=== PATIENT | female | born 1950 | race Caucasian/White ===

== ENCOUNTER → 2016-10-28 | Outpatient (CLI) | payer MEDICARE ==
--- NOTE | 2016-10-28 14:07 | CT ---
EXAMINATION TYPE: CT sinus wo con DATE OF EXAM: 10/28/2016 12:10 PM COMPARISON: NONE HISTORY: Chronic sinusitis CT DLP: 628.70 mGycm CONTRAST: None The paranasal sinuses are examined in the axial plane at 2 mm thick sections. Reconstructed images i n the coronal plane were obtained. There is dental amalgam scatter artifact The maxillary sinuses are clear. The ethmoid air cells are clear. The sphenoid sinuses are clear. The frontal sinuses are aplastic. The septum is evaluated. There is septal deviation to the left. There is prior uncinectomies bilaterally. Ethmoidectomy is been performed. IMPRESSIONS: 1. Postsurgical changes. 2. No acute sinusitis. No significant mucosal thickening is present.
== END | disposition home or self-care (01) ==
LOC: RADCTMAIN 11:54
PROVIDERS: ATTEND Otolaryngology
DX: J32.9 Chronic sinusitis, unspecified (principal)
CPT/HCPCS: 70486

== ENCOUNTER → 2016-12-15 | Outpatient (CLI) | payer MEDICARE ==
--- NOTE | 2016-12-16 10:16 | MM ---
Reason for exam: screening (asymptomatic). Last mammogram was performed 1 year and 8 months ago. History: Patient is postmenopausal. Family history of breast cancer in mother at age 69. Took estrogen for 6 months. Physical Findings: A clinical breast exam by your physician is recommended on an annual basis and results should be correlated with mammographic findings. MG Screening Mammo w CAD Bilateral CC and MLO view(s) were taken. Prior study comparison: April 27, 2015, bilateral MG screening mammo w CAD. April 24, 2014, bilateral MG screening mammo w CAD. April 21, 2013, bilateral digital screening mammo w/CAD. Finding: There are few typically benign calcifications in both breasts. There is no discrete abnormality. ASSESSMENT: Benign, BI-RAD 2 RECOMMENDATION: Routine screening mammogram of both breasts in 1 year.
== END | disposition home or self-care (01) ==
LOC: RADMAMWWP 13:35
PROVIDERS: ATTEND Family Medicine
DX: Z12.31 Encounter for screening mammogram for malignant neoplasm of breast (principal)

== ENCOUNTER → 2017-10-28 | Outpatient (CLI) | payer MEDICARE ==
[2017-10-28 12:44] LABS: Basophils % (A) 1 %; Eosinophils # (A) 0.1 k/uL (0-0.7); Eosinophils % (A) 1 %; HCT 37.6 % (34.0-46.0); HGB 13.1 gm/dL (11.4-16.0); Lymphocytes # (A) 1.8 k/uL (1.0-4.8); Lymphocytes % (A) 46 %; MCH 34.5 pg (25.0-35.0); MCHC 34.9 g/dL (31.0-37.0); Mean Platelet Volume 7.3; Monocytes # (A) 0.2 k/uL (0-1.0); Monocytes % (A) 6 %; Neutrophils # (A) 1.6 k/uL (1.3-7.7); Neutrophils % (A) 43 %; Platelet Count 192 k/uL (150-450); RBC 3.79 m/uL (3.80-5.40); WBC 3.8 k/uL (3.8-10.6)
== END | disposition home or self-care (01) ==
LOC: LABWHC1 11:57
PROVIDERS: ATTEND Internal Medicine
DX: E78.2 Mixed hyperlipidemia (principal)
CPT/HCPCS: 36415; 82607; 85025

== ENCOUNTER → 2018-03-08 | Outpatient (CLI) | payer MEDICARE ==
--- NOTE | 2018-03-08 15:57 | US ---
EXAMINATION TYPE: US transvaginal DATE OF EXAM: 03/08/2018 COMPARISON: NONE CLINICAL HISTORY: 67-year-old female R10.2 Pelvic pain. TECHNIQUE: Transvaginal (TV). Transvaginal sonographic images per order Findings: EXAM MEASUREMENTS: Uterus: 5.6 x 2.3 x 4.0 cm Endometrial Stripe: 3.2 mm Right Ovary: obscured by bowel gas/atrophy Left Ovary: obscured by bowel gas/atrophy 1. Uterus: Anteverted wnl. Some calcifications in the region of the cervix suggests prior instrume ntation or infection. 2. Endometrium: wnl 3. Right Ovary: obscured by bowel gas/atrophy 4. Left Ovary: Obscured by overlying bowel gas 5. Bilateral Adnexa: wnl 6. Posterior cul-de-sac: wnl IMPRESSION: Thin endometrial stripe, appropriate for a postmenopausal patient. Neither ovary could be visualized.
== END | disposition home or self-care (01) ==
LOC: RADUSWWP 13:04
PROVIDERS: ATTEND Family Medicine
DX: R10.2 Pelvic and perineal pain (principal); Z78.0 Asymptomatic menopausal state
CPT/HCPCS: 76830

== ENCOUNTER → 2018-04-06 | Outpatient (CLI) | payer MEDICARE ==
--- NOTE | 2018-04-06 15:19 | MM ---
Reason for exam: clinical finding. Last mammogram was performed 1 year and 4 months ago. History: Patient is postmenopausal. Family history of breast cancer in mother at age 69. Took estrogen for 6 months. Physical Findings: Nurse did not find any significant physical abnormalities on exam. MG 3D Diag Mammo W/Cad [place] Bilateral CC and MLO view(s) were taken. Prior study comparison: December 15, 2016, bilateral MG screening mammo w CAD. April 27, 2015, bilateral MG screening mammo w CAD. There are scattered fibroglandular densities. No significant new findings when compared with previous films. These results were verbally communicated with the patient and result sheet given to the patient on 04/06/18. ASSESSMENT: Benign, BI-RAD 2 RECOMMENDATION: Routine screening mammogram of both breasts in 1 year.
== END | disposition home or self-care (01) ==
LOC: RADMAMWWP 14:25
PROVIDERS: ATTEND Family Medicine
DX: N63.21 Unspecified lump in the left breast, upper outer quadrant (principal)
CPT/HCPCS: 77066; G0279; 77062

== ENCOUNTER → 2019-05-16 | Outpatient (CLI) | payer MEDICARE ==
--- NOTE | 2019-05-17 09:22 | MM ---
Reason for exam: screening (asymptomatic). Last mammogram was performed 1 year and 1 month ago. History: Patient is postmenopausal. Family history of breast cancer in mother at age 69. Took estrogen for 6 months. Physical Findings: A clinical breast exam by your physician is recommended on an annual basis and results should be correlated with mammographic findings. MG Screening Mammo w CAD Bilateral CC and MLO view(s) were taken. Prior study comparison: April 06, 2018, bilateral MG 3d diag mammo w/cad [place]. December 15, 2016, bilateral MG screening mammo w CAD. There are scattered fibroglandular densities. There is no discrete abnormality. No significant changes when compared with prior studies. ASSESSMENT: Benign, BI-RAD 2 RECOMMENDATION: Routine screening mammogram of both breasts in 1 year.
== END | disposition home or self-care (01) ==
LOC: RADMAMWWP 11:10
PROVIDERS: ATTEND Family Medicine
DX: Z12.31 Encounter for screening mammogram for malignant neoplasm of breast (principal)
CPT/HCPCS: 77067

== ENCOUNTER → 2020-01-26 | Outpatient (CLI) | payer MEDICARE ==
--- NOTE | 2020-01-26 11:04 | US ---
EXAMINATION TYPE: US venous doppler duplex LE RT DATE OF EXAM: 01/26/2020 10:55 AM COMPARISON: NONE CLINICAL HISTORY: 69-year-old female M79.661 pain in RT lower leg. Pt states right leg pain and swell ing SIDE PERFORMED: Right TECHNIQUE: The lower extremity deep venous system is examined utilizing real time linear array sonog wesly with graded compression, doppler sonography and color-flow sonography. FINDINGS: VESSELS IMAGED: External Iliac Vein (EIV) Common Femoral Vein Deep Femoral Vein Greater Saphenous Vein * Femoral Vein Popliteal Vein Small Saphenous Vein * Proximal Calf Veins (* superficial vessels) Right Leg: Negative for DVT. Suspect a small elongated Beard's Cyst right pop fossa= 4.1 x 0.9 x 2.2 cm Autoclave Operator notes: Attempted to call Dr's office at time of exam, no answer IMPRESSION: 1. No evidence for DVT within the right lower extremity imaged from the groin to the upper calf. 2. Suspect a small and elongated 4.1 x 2.2 cm Beard's cyst.
== END | disposition home or self-care (01) ==
LOC: RADUSWWP 10:32
PROVIDERS: ATTEND Family Medicine
DX: M79.661 Pain in right lower leg (principal)

== ENCOUNTER → 2020-05-09 | Outpatient (CLI) | payer MEDICARE ==
--- NOTE | 2020-05-10 00:02 | MR ---
EXAMINATION TYPE: MR knee RT wo con DATE OF EXAM: 05/09/2020 COMPARISON: None HISTORY: Right knee pain S/P fall Multiplanar multiecho imaging of the right knee was performed without contrast. FINDINGS: There is a mild to moderate knee joint effusion. There is popliteal cyst that measures 6 x 1 cm. The anterior and posterior cruciate ligaments are intact. There is vertical tear through the posterior ho rn of the lateral meniscus. There is minimal increased signal within the posterior horn of the medial meniscus without extension to the articular surface. There is narrowing of the medial joint space. T here is some spurring of the femoral and tibial condyles. I see no bony destructive process. The liseth ateral ligaments are intact. There is no evidence of a fracture. There is no soft tissue mass. IMPRESSION: Vertical tear through the posterior horn of the lateral meniscus. A stricture arthritic changes in th e medial joint space with spurring and joint space narrowing. Joint effusion with popliteal cyst. No evidence of ligamentous tear.
== END | disposition home or self-care (01) ==
LOC: RADMRIMAIN 19:53
PROVIDERS: ATTEND Orthopaedic Surgery
DX: S83.281A Other tear of lateral meniscus, current injury, right knee, initial encounter (principal); M17.11 Unilateral primary osteoarthritis, right knee; M25.461 Effusion, right knee; M71.21 Synovial cyst of popliteal space [Baker], right knee

== ENCOUNTER → 2020-05-18 | Outpatient (CLI) | payer MEDICARE ==
[2020-05-18 12:43] LABS: Basophils % (A) 1 %; Eosinophils % (A) 1 %; HCT 35.9 % (34.0-46.0); Lymphocytes # (A) 1.6 k/uL (1.0-4.8); Lymphocytes % (A) 47 %; MCH 34.1 pg (25.0-35.0); MCHC 33.5 g/dL (31.0-37.0); MCV 101.8 fL (80.0-100.0); Mean Platelet Volume 7.2; Monocytes # (A) 0.2 k/uL (0-1.0); Monocytes % (A) 6 %; Neutrophils # (A) 1.4 k/uL (1.3-7.7); Neutrophils % (A) 43 %; Platelet Count 142 k/uL (150-450); RBC 3.52 m/uL (3.80-5.40); RDW 12.6 % (11.5-15.5); WBC 3.3 k/uL (3.8-10.6)
[2020-05-18 12:51] LABS: Potassium 4.5 mmol/L (3.5-5.1)
== END | disposition home or self-care (01) ==
LOC: LABPAT 11:26
PROVIDERS: ATTEND Orthopaedic Surgery
DX: M23.91 Unspecified internal derangement of right knee (principal)
CPT/HCPCS: 36415; 80051; 85025; 93005

== ENCOUNTER → 2020-06-07 | Day surgery (SDC) | payer MEDICARE ==
[2020-06-05 14:34] VITALS: BMI 29.8
--- NOTE | 2020-06-06 17:15 | HP ---
HISTORY AND PHYSICAL DATE OF SURGERY: 06/07/2020 Jocy Sapp is a 70-year-old patient seen with progressive right knee pain. We discussed options for treatment. She elected to proceed with right knee arthroscopy. Consent was obtained. PAST MEDICAL HISTORY: Asthma. PAST SURGICAL HISTORY: Knee arthroscopy. MEDICATIONS: Albuterol, Spiriva. ALLERGIES: None. SOCIAL HISTORY: She denies tobacco use. PHYSICAL EVALUATION RIGHT KNEE: Range of motion 0-120. Mild effusion. Tenderness along the medial joint line, tenderness along the lateral joint line. Positive medial Ok's. Positive lateral Ok's. Ligaments stable. Hip rotation without pain. There is patellar crepitus. Range of motion. Distal neurovascular exam intact. RIGHT KNEE RADIOGRAPHS: Revealed moderate medial, moderate to severe patellofemoral compartment osteoarthritis. A right knee MRI revealed lateral meniscal tear, joint effusion, and osteoarthritic changes. IMPRESSION: 1. Internal derangement, right knee with lateral meniscal tear. 2. Right knee osteoarthritis. 3. Asthma. PLAN: Right knee arthroscopy with partial meniscectomy, partial synovectomy and debridement. MMODL / IJN: [id number] /
[~2020-06-07] MED LIST: BUPIVACAINE (PF) 0.5% 30 ML VIAL MISCELLANE ONE; DEXAMETHASONE SOD PHOSPHATE 10 MG/ML 1 ML VIAL IV ONE; HYDROmorphone 0.5 MG/0.5 ML SYRINGE IVP PRN; KETOROLAC 15 MG/ML 1 ML VIAL IVP ONE; LACTATED RINGERS 1,000 ML IV SCH; LIDOCAINE 1% INJ 10MG/ML (20 ML MDV) ONE; MIDAZOLAM 2 MG/2 ML VIAL ONE; ONDANSETRON 4 MG/2 ML VIAL IVP ONE; PROPOFOL 10 MG/ML 20 ML VIAL IV ONE; fentaNYL (PF) 50 MCG/ML 2 ML AMP ONE; traMADol 50 MG TAB ONE; traMADol 50 MG TAB PO ONE
[2020-06-07 12:27] VITALS: RESP 16
[2020-06-07 15:03] VITALS: TEMP 98.6
--- NOTE | 2020-06-07 15:05 | P.OP ---
Date of Procedure: 06/07/20 Preoperative Diagnosis: Internal derangement right knee Postoperative Diagnosis: 1. Tear lateral meniscus right knee 2. Grade 2/3 chondromalacia lateral femoral condyle right knee 3. 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 Reactive synovitis medial, lateral and suprapatellar compartments right knee Procedure(s) Performed: 1. Arthroscopic partial lateral meniscectomy right knee 2. Arthroscopic chondroplasty lateral femoral condyle right knee 3. Arthroscopic chondroplasty patella right knee 4. Arthroscopic partial synovectomy medial, lateral and suprapatellar compartments right knee Anesthesia: PIPEA, local Surgeon: Tereso Pino Estimated Blood Loss (ml): 7 Pathology: none sent Condition: stable Disposition: PACU Indications for Procedure: 70-year-old patient seen with progressive right knee pain. After treatment options were discussed, she elected to proceed with arthroscopy. Operative Findings: See description of procedure Description of Procedure: Patient was taken to the operative suite. Patient underwent a general anesthetic by the department of anesthesia. Patient was given preoperative antibiotics. The right lower extremity was placed in a well-padded arthroscopic leg arnett. The right leg was prepped and draped in the normal sterile orthopedic fashion. A lateral parapatellar and suprapatellar incision was made. Trochars were inserted. Arthroscopy was initiated. Suprapatellar pouch revealed diffuse thick reactive synovitis. The patellofemoral joint appeared to articulate congruently. There was grade 3 chondromalacia of both the patella and femoral sulcus. The scope was guided into the medial gutter. Loose bodies or plica were identified. The scope was then guided into the medial compartment. A medial parapatellar incision was made. Trocar inserted followed by probe. There was some superficial fraying along the posterior horn medial meniscus. There was thick reactive synovitis anteriorly. There were grade 1/2 chondromalacia changes of the femoral condyle with no tears. I debrided that mild superficial fraying with a motorized shaver. I performed a partial synovectomy decompressing the reactive synovitis. The shaver was removed. There was good decompression of the synovitis. Scope and probe were then guided into the intercondylar notch. Cruciates were identified, probed and found to be able. The scope and probe were then guided into lateral compartment. There were grade 2/3 chondromalacia changes of the lateral femoral condyle with some small osteochondral tears. There was a complex tear posterior horn lateral meniscus. There was thick reactive synovitis anteriorly. I performed a partial lateral meniscectomy. I performed a chondroplasty of the lateral femoral condyle. I performed a partial synovectomy. The residual meniscus was stable. The residual osteochondral surface was stable. There was good decompression of the synovitis. The scope was in guided back into the suprapatellar compartment. I introduced a motorized shaver into the super compartment. I debrided some piecemeal fragments of meniscus. I performed a chondroplasty of the patella and femoral sulcus. I performed a partial synovectomy decompressing reactive synovitis. The shaver was removed. There was good decompression of synovitis. The residual osteochondral surface of the patellofemoral joint appeared stable. There were now noticeable some areas of grade 4 chondromalacia. I took one more look on the entire knee, no residual debris. Instruments were now removed from the joint. The joint was infiltrated with .25% Marcaine. Steri-Strips were applied to the portal sites. Sterile dressings were applied. The patient was placed into a SHARON hose. No tourniquet was utilized. The patient was awakened, transferred to a bed and taken to recovery stable satisfactory condition.
[2020-06-07 16:17] VITALS: BP 123/81; PULSE 60
== END | disposition home or self-care (01) ==
LOC: OR 11:22
PROVIDERS: ATTEND Orthopaedic Surgery
DX: M23.200 Derangement of unspecified lateral meniscus due to old tear or injury, right knee (principal); M22.41 Chondromalacia patellae, right knee; M65.861 Other synovitis and tenosynovitis, right lower leg; J45.909 Unspecified asthma, uncomplicated; I34.1 Nonrheumatic mitral (valve) prolapse; E07.9 Disorder of thyroid, unspecified; K21.9 Gastro-esophageal reflux disease without esophagitis; Z98.890 Other specified postprocedural states; Z90.710 Acquired absence of both cervix and uterus; Z79.899 Other long term (current) drug therapy
CPT/HCPCS: 29881; J2250; J1100; J0690; J2405; J2001; J3010; J1885; J2704

== ENCOUNTER → 2020-06-25 | Outpatient (CLI) | payer MEDICARE ==
--- NOTE | 2020-06-26 09:39 | MM ---
Reason for exam: screening (asymptomatic). Last mammogram was performed 1 year and 1 month ago. History: Patient is postmenopausal. Family history of breast cancer in mother at age 69. Took estrogen for 6 months. Physical Findings: A clinical breast exam by your physician is recommended on an annual basis and results should be correlated with mammographic findings. MG 3D Screening Mammo W/Cad Bilateral CC and MLO view(s) were taken. Prior study comparison: May 16, 2019, bilateral MG screening mammo w CAD. April 06, 2018, bilateral MG 3d diag mammo w/cad [facility]. There are scattered fibroglandular densities. There is no discrete abnormality. No significant changes when compared with prior studies. ASSESSMENT: Negative, BI-RAD 1 RECOMMENDATION: Routine screening mammogram of both breasts in 1 year.
== END | disposition home or self-care (01) ==
LOC: RADMAMWWP 10:53
PROVIDERS: ATTEND Internal Medicine
DX: Z12.31 Encounter for screening mammogram for malignant neoplasm of breast (principal)
CPT/HCPCS: 77063; 77067

== ENCOUNTER → 2020-10-01 | Outpatient (CLI) | payer MEDICARE ==
[2020-10-01 09:21] LABS: African American GFR (CKD) >90 (>60 ml/min/1.73 sqM); Blood Urea Nitrogen 10 mg/dL (7-17); Non-African American GFR(CKD) 87 (>60 ml/min/1.73 sqM)
--- NOTE | 2020-10-01 11:52 | CT ---
EXAMINATION TYPE: CT soft tissue neck w con DATE OF EXAM: 10/01/2020 COMPARISON: None HISTORY: Swelling, mass and lumb left neck CT DLP: 455.2 mGycm CONTRAST: Patient injected with 100 mL of Isovue 300. TECHNIQUE: Axial images at 3 mm thick sections. Reconstructed images in the coronal plane and sagitt al plane are reviewed. FINDINGS: Limited CT sections are obtained the lung apices. The lung apices appear clear. CT neck: The torus tubarius and fossa of Rosenmuller are normal. Physical Therapy Resident spaces are normal. Para nasal sinuses and mastoid air cells are clear. Parotid glands appear normal and symmetrical. Submandibular glands, are normal. Parapharyngeal spac es are normal. No suspicious adenopathy is evident. BB ludwig the palpable region at the base of the neck extending towards the temporal region. This is a t the lower extent of the parotid gland. The underlying parotid gland however appears unremarkable an d symmetrical with the contralateral side. The hypopharynx appears within normal limits. There is a tiny ring within the submental space just ri ght of midline. This appears peripheral enhancement is nonspecific. Small lymph node may be present. Consider follow-up. Vocal cord level appear symmetrical. Thyroid as visualized is normal. Some mild degenerative disc changes within the mid to lower cervical spine. Subtle kyphosis in the lo wer cervical spine. There may be a small central disc bulge C4-5. IMPRESSIONS: 1. BB ludwig the lower extent of the left parotid gland. Parotid gland appears unremarkable. Abnormali ty to correspond to the reported palpable abnormality is not identified. 2. Tiny ring-enhancing lesion measuring 0.6 cm within submental space may be present.
== END | disposition home or self-care (01) ==
LOC: RADCTMAIN 08:28
PROVIDERS: ATTEND Otolaryngology
DX: R22.1 Localized swelling, mass and lump, neck (principal)
CPT/HCPCS: 70491; 82565; 84520

== ENCOUNTER → 2021-01-21 | Outpatient (CLI) | payer MEDICARE ==
[2021-01-21 23:52] LABS: HGB 11.7 g/dL (12.0-15.0); MCH 34.3 pg (27.0-32.0); MCHC 33.4 g/dL (32.0-37.0); MCV 102.6 fL (80.0-97.0); Mean Platelet Volume 10.3 fL (9.5-12.2); Platelet Count 154 X 10*3/uL (140-440); RBC 3.41 X 10*6/uL (4.10-5.20); RDW 12.3 % (11.5-14.5); WBC 4.98 X 10*3/uL (4.50-10.00)
[2021-01-22 00:43] LABS: Basophils # (A) 0.02 X 10*3/uL (0.00-0.10); Basophils % (A) 0.4 %; Eosinophils # (A) 0.04 X 10*3/uL (0.04-0.35); Eosinophils % (A) 0.8 %; Lymphocytes # (A) 2.33 X 10*3/uL (0.90-5.00); Lymphocytes % (A) 46.8 %; Macrocytosis (M) 2+; Monocytes # (A) 0.35 X 10*3/uL (0.20-1.00); Neutrophils # (A) 2.22 X 10*3/uL (1.80-7.70); Neutrophils % (A) 44.6 %
[2021-01-22 01:44] LABS: % Iron Saturation 23.06 (12.00-45.00); African American GFR (CKD) 87.2 (60.0-200.0); Albumin 4.4 g/dL (3.80-4.90); Albumin/Globulin Ratio 1.63 (1.60-3.17); Anion Gap 7.6 mmol/L (4.00-12.00); BUN/Creat Ratio 16.25 Ratio (12.00-20.00); Calcium 10.2 mg/dL (8.7-10.3); Carbon Dioxide 25.4 mmol/L (21.6-31.8); Globulin 2.7 g/dL (1.6-3.3); Non-African American GFR(CKD) 75.2 (60.0-200.0); Potassium 4.2 mmol/L (3.5-5.5); Total Bilirubin 0.4 mg/dL (0.2-1.2); Total Protein 7.1 g/dL (6.2-8.2)
[2021-01-22 01:52] LABS: Ferritin 30.2 ng/mL (10.0-291.0)
[2021-01-22 13:25] LABS: Ceruloplasmin 29.6 mg/dL (20.0-60.0)
== END | disposition home or self-care (01) ==
LOC: LABWHC1 15:54
PROVIDERS: ATTEND Internal Medicine Gastroenterology
DX: K76.0 Fatty (change of) liver, not elsewhere classified (principal); D69.6 Thrombocytopenia, unspecified; R74.8 Abnormal levels of other serum enzymes
CPT/HCPCS: 36415; 80053; 81596; 82103; 82390; 82728; 83516; 83540; 83550; 85025; 86038

== ENCOUNTER 2021-02-26 09:53 | Day surgery (SDC) | payer MEDICARE ==
[~2021-02-26 09:53] MED LIST changes: -BUPIVACAINE (PF) 0.5% 30 ML VIAL MISCELLANE ONE; -DEXAMETHASONE SOD PHOSPHATE 10 MG/ML 1 ML VIAL IV ONE; -HYDROmorphone 0.5 MG/0.5 ML SYRINGE IVP PRN; -KETOROLAC 15 MG/ML 1 ML VIAL IVP ONE; +LIDOCAINE 1% (10MG/ML) FOR IV START INTRADERMA PRN; -LIDOCAINE 1% INJ 10MG/ML (20 ML MDV) ONE; -MIDAZOLAM 2 MG/2 ML VIAL ONE; -ONDANSETRON 4 MG/2 ML VIAL IVP ONE; -PROPOFOL 10 MG/ML 20 ML VIAL IV ONE; -fentaNYL (PF) 50 MCG/ML 2 ML AMP ONE; -traMADol 50 MG TAB ONE; -traMADol 50 MG TAB PO ONE
[2021-02-26] MEDS ORDERED: ONDANSETRON 4 MG/2 ML VIAL ONE (10:34)
[2021-02-26] MEDS ORDERED: ONDANSETRON 4 MG/2 ML VIAL IVP ONE (10:36)
[2021-02-26] MEDS ORDERED: PROPOFOL 10 MG/ML 20 ML VIAL IV ONE (11:08)
[2021-02-26] MEDS ORDERED: LIDOCAINE 1% INJ 10MG/ML (20 ML MDV) ONE (11:08)
--- NOTE | 2021-02-26 11:13 | P.GSHP ---
History of Present Illness H&P Date: 02/26/21 Chief Complaint: Colon cancer screening Patient here today for colonoscopy. Last colonoscopy 5 years ago. Patient is personal history of colon polyps. Patient also has history of H. pylori in the past. No abdominal complaints have improved. No rectal bleeding or melena. No family history of colon cancer. Past Medical History Past Medical History: Asthma, Coronary Artery Disease (CAD), COPD, Eye Disorder, GERD/Reflux, Hearing Disorder / Deafness, Hyperlipidemia, Mitral Valve Prolapse (MVP), Osteoarthritis (OA), Thyroid Disorder Additional Past Medical History / Comment(s): current fx Left wrist in cast, mitral valve prolapse, questionable history of pulmonary hypertension and enlarged cardiac structures on the right,colon polyps, HX VERTIGO, History of Any Multi-Drug Resistant Organisms: None Reported Past Surgical History: Adenoidectomy, Cholecystectomy, Heart Catheterization, Tonsillectomy, Tubal Ligation Additional Past Surgical History / Comment(s): colonoscopy, 1 implanted teeth LOWER RT SIDE, LIPO SUCTION BALBINA. THIGHS (1994), NASAL SX (FIXED BROKEN NOSE), YOU 05/04/15-previous YOU and cardiac catheterization in 2010 Past Anesthesia/Blood Transfusion Reactions: Postoperative Nausea & Vomiting (PONV) Additional Past Anesthesia/Blood Transfusion Reaction / Comment(s): hx vertigo Smoking Status: Former smoker - Past Family History Father Family Medical History: Cancer Additional Family Medical History / Comment(s): ESOPHAGEAL CANCER, HX ETOH AND SMOKING Mother Family Medical History: Cancer, Diabetes Mellitus Additional Family Medical History / Comment(s): BREAST CANCER, SKIN CANCER AND EYE ANEURYSMS Sister(s) Additional Family Medical History / Comment(s): BRAIN AND EYE ANEURYSMS. Medications and Allergies Home Medications Medication Instructions Recorded Confirmed Type ALPRAZolam [Xanax] 0.25 mg PO BID PRN 08/09/14 02/26/21 History Albuterol Inhaler (Mhu) [Ventolin 1 - 2 puff INHALATION RT-Q6H PRN 08/09/14 02/26/21 History Hfa Inhaler (Mhu)] Cholecalciferol [Vitamin D3 (25 2,000 unit PO DAILY@1200 05/02/15 02/26/21 History Mcg = 1000 Iu)] Fluticasone Nasal Leary [Flonase 1 spray EA NOSTRIL DAILY PRN 05/02/15 02/26/21 History Nasal Leary] Meclizine [Antivert] 25 mg PO TID PRN 05/02/15 02/26/21 History Tiotropium 18 Mcg/Puff [Spiriva] 1 cap INHALATION RT-DAILY 05/02/15 02/26/21 History Fexofenadine/Pseudoephedrine 1 each PO DAILY PRN 06/25/15 02/26/21 History [Lila-D 24 Hour Tablet] Elmira-3(600mg) 600 mg PO DAILY 06/25/15 02/26/21 History Dulera 1 puff INHALATION DAILY 06/05/20 02/26/21 History Levothyroxine Sodium [Synthroid] 25 mcg PO DAILY 06/05/20 02/26/21 History Montelukast [Singulair] 10 mg PO DAILY 06/05/20 02/26/21 History diphenhydrAMINE [Benadryl] 25 mg PO TID PRN 06/05/20 02/26/21 History Allergies Allergy/AdvReac Type Severity Reaction Status Date / Time peanut Allergy SHORTNESS Verified 02/26/21 10:11 OF BREATH-THROAT CLOSES ENVIRONMENTAL ALLERGIES Allergy SINUS Uncoded 02/26/21 10:11 SYMPTOMS-MOLD,POLLEN,DUST,TREES,GRASS,ETC. Surgical - Exam Vital Signs Pulse Resp BP Pulse Ox 65 16 131/64 96 02/26/21 10:15 02/26/21 10:15 02/26/21 10:15 02/26/21 10:15 Physical exam: General: Well-developed, well-nourished HEENT: Normocephalic, sclerae nonicteric Abdomen: Nontender, nondistended Extremities: No edema Neuro: Alert and oriented Assessment and Plan (1) Colon cancer screening Narrative/Plan: Will proceed with colonoscopy at this time Current Visit: Yes Status: Acute Code(s): Z12.11 - ENCOUNTER FOR SCREENING FOR MALIGNANT NEOPLASM OF COLON SNOMED Code(s): 632259186
--- NOTE | 2021-02-26 11:31 | P.PCN ---
Date of Procedure: 02/26/21 Procedure(s) Performed: PREOPERATIVE DIAGNOSIS: Colon cancer screening, history of polyps POSTOPERATIVE DIAGNOSIS: Sigmoid polyp, diverticulosis PROCEDURE: Colonoscopy with snare cautery ANESTHESIA: MAC SURGEON: Attila Flores M.D. SPECIMENS: Sigmoid colon polyp ENDOSCOPIC PROCEDURE: The patient was placed on the endoscopy table in the left decubitus position. The Olympus colonoscope was inserted into the anus and passed under direct visualization to the base of the cecum. The appendiceal orifice was visualized. From that point the scope was slowly withdrawn inspecting all surfaces carefully. There were no neoplastic inflammatory or polypoid lesions throughout the cecum, ascending, transverse, and descending colon. In the sigmoid colon a small polyp was seen and removed using the snare with cautery technique. The remainder of the sigmoid and rectum appeared normal. There was mild scattered diverticulosis throughout the colon. Digital rectal examination was normal. The patient was taken to the recovery room in stable condition per anesthesia guidelines. RECOMMENDATIONS: Await biopsy results. Follow loss to 5 years.
[2021-02-26 12:02] VITALS: BP 147/75; PULSE 53; RESP 20
== END 2021-02-26 12:13 | disposition home or self-care (01) ==
LOC: ORWHC2ENDO 09:53
PROVIDERS: ATTEND Surgery
DX: Z12.11 Encounter for screening for malignant neoplasm of colon (principal); D12.5 Benign neoplasm of sigmoid colon; K57.30 Diverticulosis of large intestine without perforation or abscess without bleeding; Z86.010 Personal history of colon polyps; I25.10 Atherosclerotic heart disease of native coronary artery without angina pectoris; J44.9 Chronic obstructive pulmonary disease, unspecified; K21.9 Gastro-esophageal reflux disease without esophagitis; H91.90 Unspecified hearing loss, unspecified ear; E78.5 Hyperlipidemia, unspecified; I34.1 Nonrheumatic mitral (valve) prolapse; M19.90 Unspecified osteoarthritis, unspecified site; R42 Dizziness and giddiness; K76.0 Fatty (change of) liver, not elsewhere classified; E07.9 Disorder of thyroid, unspecified; Z90.89 Acquired absence of other organs; Z90.49 Acquired absence of other specified parts of digestive tract; Z98.51 Tubal ligation status; Z98.890 Other specified postprocedural states; Z87.891 Personal history of nicotine dependence; Z80.0 Family history of malignant neoplasm of digestive organs; Z83.3 Family history of diabetes mellitus; Z80.3 Family history of malignant neoplasm of breast; Z80.8 Family history of malignant neoplasm of other organs or systems; H57.89 Other specified disorders of eye and adnexa; Z79.51 Long term (current) use of inhaled steroids; Z79.890 Hormone replacement therapy; Z79.899 Other long term (current) drug therapy; Z91.010 Allergy to peanuts; Z91.048 Other nonmedicinal substance allergy status
CPT/HCPCS: 88305; 45385; J2405; J2001; J2704

== ENCOUNTER → 2021-03-18 | Outpatient (CLI) | payer MEDICARE ==
[2021-03-18 20:16] LABS: African American GFR (CKD) 107.8 (60.0-200.0); Albumin 4.4 g/dL (3.80-4.90); Albumin/Globulin Ratio 1.69 (1.60-3.17); Anion Gap 9.4 mmol/L (4.00-12.00); BUN/Creat Ratio 21.67 Ratio (12.00-20.00); Calcium 9.3 mg/dL (8.7-10.3); Carbon Dioxide 25.6 mmol/L (21.6-31.8); Chol/HDL Ratio 3.4; Globulin 2.6 g/dL (1.6-3.3); Potassium 4.4 mmol/L (3.5-5.5); Total Bilirubin 0.5 mg/dL (0.2-1.2)
== END | disposition home or self-care (01) ==
LOC: LABWHC1 11:17
PROVIDERS: ATTEND Internal Medicine Interventional Cardiology
DX: E78.2 Mixed hyperlipidemia (principal)
CPT/HCPCS: 36415; 80053; 80061

== ENCOUNTER → 2021-07-03 | Outpatient (CLI) | payer MEDICARE | END | disposition home or self-care (01) | LOC: LABWHC1 15:21 | PROVIDERS: ATTEND Internal Medicine Critical Care Medicine | DX: G72.49 Other inflammatory and immune myopathies, not elsewhere classified (principal) | CPT/HCPCS: 36415; 82550 ==

== ENCOUNTER → 2021-07-23 | Outpatient (CLI) | payer MEDICARE ==
--- NOTE | 2021-07-24 14:46 | MM ---
Reason for exam: screening (asymptomatic). Last mammogram was performed 1 year and 1 month ago. History: Patient is postmenopausal. Family history of breast cancer in mother at age 69. Took estrogen for 6 months. Physical Findings: A clinical breast exam by your physician is recommended on an annual basis and results should be correlated with mammographic findings. MG 3D Screening Mammo W/Cad Bilateral CC and MLO view(s) were taken. Prior study comparison: June 25, 2020, bilateral MG 3d screening mammo w/cad. May 16, 2019, bilateral MG screening mammo w CAD. There are scattered fibroglandular densities. No significant changes when compared with prior studies. ASSESSMENT: Benign, BI-RAD 2 RECOMMENDATION: Routine screening mammogram of both breasts in 1 year.
== END | disposition home or self-care (01) ==
LOC: RADMAMWWP 08:08
PROVIDERS: ATTEND Internal Medicine
DX: Z12.31 Encounter for screening mammogram for malignant neoplasm of breast (principal); Z80.3 Family history of malignant neoplasm of breast; Z78.0 Asymptomatic menopausal state
CPT/HCPCS: 77063; 77067

== ENCOUNTER → 2021-07-31 | Outpatient (CLI) | payer MEDICARE ==
[2021-07-31 19:11] LABS: HCT 36.9 % (37.2-46.3); HGB 12.4 g/dL (12.0-15.0); MCH 35.5 pg (27.0-32.0); MCHC 33.6 g/dL (32.0-37.0); MCV 105.7 fL (80.0-97.0); Mean Platelet Volume 9.8 fL (9.5-12.2); Platelet Count 150 X 10*3/uL (140-440); RBC 3.49 X 10*6/uL (4.10-5.20); RDW 13.2 % (11.5-14.5); WBC 4.92 X 10*3/uL (4.50-10.00)
[2021-07-31 20:28] LABS: Basophils # (A) 0.02 X 10*3/uL (0.00-0.10); Basophils % (A) 0.4 %; Eosinophils # (A) 0.01 X 10*3/uL (0.04-0.35); Eosinophils % (A) 0.2 %; Lymphocytes # (A) 1.69 X 10*3/uL (0.90-5.00); Lymphocytes % (A) 34.3 %; Monocytes # (A) 0.37 X 10*3/uL (0.20-1.00); Monocytes % (A) 7.5 %
[2021-07-31 21:08] LABS: Albumin 4.4 g/dL (3.8-4.9); Albumin/Globulin Ratio 1.76 (1.60-3.17); Anion Gap 11.7 mmol/L (10.00-18.00); BUN/Creat Ratio 11.83 Ratio (12.00-20.00); Blood Urea Nitrogen 7.1 mg/dL (9.0-27.0); Calcium 9.4 mg/dL (8.7-10.3); Carbon Dioxide 24.3 mmol/L (20.0-27.5); Globulin 2.5 g/dL (1.6-3.3); Non-African American GFR(CKD) 92.4 (60.0-200.0); Potassium 4.2 mmol/L (3.5-5.5); Total Bilirubin 0.3 mg/dL (0.30-1.20); Total Protein 6.9 g/dL (6.2-8.2)
== END | disposition home or self-care (01) ==
LOC: LABWHC1 14:14
PROVIDERS: ATTEND Internal Medicine Gastroenterology
DX: D69.6 Thrombocytopenia, unspecified (principal)
CPT/HCPCS: 36415; 80053; 85025

== ENCOUNTER → 2021-10-04 | Outpatient (CLI) | payer MEDICARE ==
--- NOTE | 2021-10-05 03:20 | MR ---
EXAMINATION TYPE: MR brain and iac wo/w con DATE OF EXAM: 10/04/2021 COMPARISON: None HISTORY: H93.19 Tinnitus H91.90 Hearing loss R51 Headache, Dizziness CONTRAST: Standard multiplanar, multisequence MRI departmental protocol images were obtained without contrast a nd with 8 mL intravenous Gadavist gadolinium contrast. Multiplanar multi echo imaging of the brain without and subsequently with IV contrast. There is some cerebral cortical atrophy. There is no mass effect or midline shift. There is no sign o f intracranial hemorrhage. Diffusion images show no evidence of an acute infarct. Corpus callosum kaylie ears intact. There is a 4 mm focus of increased signal in the white matter of the right internal caps ule. There is no significant white matter disease. Brainstem is intact. Sella turcica appears normal. There is no evidence of orbital mass. There is no evidence of cortical infarct. The internal auditory canals appear normal. The acoustic nerve and vestibular nerve appear normal. Th ere is no cerebellopontine angle mass. Cerebellum appears normal. There is normal signal pattern of t he temporal bones. There is no evidence of mastoiditis. The contrast images show no pathologic enhancement. There is normal enhancement of the venous sinuses . IMPRESSION: Mild atrophy appropriate for age. Minimal white matter signal changes of doubtful significance. No fo jaskaran posterior fossa abnormality.
== END | disposition home or self-care (01) ==
LOC: RADMRIMAIN 11:46
PROVIDERS: ATTEND Otolaryngology
DX: H93.19 Tinnitus, unspecified ear (principal); H91.90 Unspecified hearing loss, unspecified ear; R51.9 Headache, unspecified
CPT/HCPCS: 70553; A9585

== ENCOUNTER → 2021-10-04 | Outpatient (CLI) | payer MEDICARE ==
[2021-10-04 14:30] LABS: Ionized Calcium 5.2 mg/dL (4.5-5.3)
[2021-10-04 14:40] LABS: HCT 37.6 % (34.0-46.0); HGB 12.8 gm/dL (11.4-16.0); MCH 37.3 pg (25.0-35.0); MCHC 34.1 g/dL (31.0-37.0); MCV 109.5 fL (80.0-100.0); Macrocytosis Moderate; Mean Platelet Volume 7.4; Platelet Count 148 k/uL (150-450); RBC 3.44 m/uL (3.80-5.40); RDW 12.2 % (11.5-15.5); WBC 4.8 k/uL (3.8-10.6)
[2021-10-04 15:03] LABS: T4, Free (Free Thyroxine) 0.98 ng/dL (0.78-2.19)
[2021-10-04 20:33] LABS: ALT 31 U/L (8-44); AST 23 U/L (13-35); African American GFR (CKD) 105.9 (60.0-200.0); Albumin 4.3 g/dL (3.8-4.9); Albumin/Globulin Ratio 1.81 (1.60-3.17); Alkaline Phosphatase 91 U/L (41-126); BUN/Creat Ratio 15.95 Ratio (12.00-20.00); Blood Urea Nitrogen 9.9 mg/dL (9.0-27.0); Calcium 9.6 mg/dL (8.7-10.3); Carbon Dioxide 24.4 mmol/L (20.0-27.5); Chloride 106 mmol/L (96-109); Globulin 2.4 g/dL (1.6-3.3); Glucose 89 mg/dL (70-110); Non-African American GFR(CKD) 91.4 (60.0-200.0); Sodium 143 mmol/L (135-145); Total Protein 6.6 g/dL (6.2-8.2); Vitamin B12 >2000.0 pg/mL (200.0-944.0)
[2021-10-04 21:05] LABS: Folate, Serum >20.00 ng/mL (4.40-31.00)
[2021-10-07 09:39] LABS: Aldolase 6.4 U/L (1.2-7.6)
== END | disposition home or self-care (01) ==
LOC: LABWHC1 13:19
PROVIDERS: ATTEND Internal Medicine
DX: M79.10 Myalgia, unspecified site (principal); E03.9 Hypothyroidism, unspecified; R42 Dizziness and giddiness
CPT/HCPCS: 36415; 80053; 82085; 82330; 82550; 82607; 82746; 83625; 83970; 84439; 84443; 85027

== ENCOUNTER → 2021-10-12 | Outpatient (CLI) | payer MEDICARE ==
[2021-10-12 14:09] LABS: ALT 22 U/L (8-44); AST 17 U/L (13-35); Chol/HDL Ratio 3.31 Ratio; LDL Cholesterol,Calculated 126.1 mg/dL (0.0-131.0)
== END | disposition home or self-care (01) ==
LOC: LABWHC1 08:34
PROVIDERS: ATTEND Nurse Practitioner Adult Health
DX: E78.2 Mixed hyperlipidemia (principal)
CPT/HCPCS: 36415; 80061; 84450; 84460

== ENCOUNTER → 2022-01-14 | Outpatient (CLI) | payer MEDICARE ==
[2022-01-14 18:43] LABS: Basophils # (A) 0.02 X 10*3/uL (0.00-0.10); Basophils % (A) 0.4 %; Eosinophils # (A) 0.01 X 10*3/uL (0.04-0.35); Eosinophils % (A) 0.2 %; HCT 39.1 % (37.2-46.3); HGB 12.7 g/dL (12.0-15.0); Immature Grans, Automated 0.9 %; MCH 34.7 pg (27.0-32.0); MCHC 32.5 g/dL (32.0-37.0); MCV 106.8 fL (80.0-97.0); Monocytes # (A) 0.37 X 10*3/uL (0.20-1.00); Monocytes % (A) 6.9 %; NRBC Per 100 WBC 0 /100 WBCS (0.0-0.0); Neutrophils # (A) 2.84 X 10*3/uL (1.80-7.70); Neutrophils % (A) 52.6 %; Platelet Count 137 X 10*3/uL (140-440); RBC 3.66 X 10*6/uL (4.10-5.20); RDW 12.4 % (11.5-14.5); WBC 5.39 X 10*3/uL (4.50-10.00)
[2022-01-14 19:03] LABS: African American GFR (CKD) 101.7 (60.0-200.0); Albumin 4.4 g/dL (3.8-4.9); Albumin/Globulin Ratio 1.76 (1.60-3.17); Anion Gap 9.9 mmol/L (10.00-18.00); BUN/Creat Ratio 14.57 Ratio (12.00-20.00); Blood Urea Nitrogen 10.2 mg/dL (9.0-27.0); Calcium 9.6 mg/dL (8.7-10.3); Carbon Dioxide 25.1 mmol/L (20.0-27.5); Globulin 2.5 g/dL (1.6-3.3); Non-African American GFR(CKD) 87.8 (60.0-200.0); Potassium 4.5 mmol/L (3.5-5.5); Total Bilirubin 0.4 mg/dL (0.30-1.20); Total Protein 6.9 g/dL (6.2-8.2)
== END | disposition home or self-care (01) ==
LOC: LABWHC1 10:55
PROVIDERS: ATTEND Internal Medicine Gastroenterology
DX: D69.6 Thrombocytopenia, unspecified (principal)
CPT/HCPCS: 36415; 80053; 85025

== ENCOUNTER → 2022-01-20 | Outpatient (CLI) | payer MEDICARE ==
--- NOTE | 2022-01-20 14:08 | MM ---
Reason for Exam: Clinical finding. Last screening mammogram was performed 6 month(s) ago. Indicated Problems: Pain of the left side for 6 Month(s) : medial side left breast. Patient History: Menarche at age 16. First Full-Term at age 26. Postmenopausal. Estrogen for 6 months. Mother had breast cancer, age 69. Risk Values: Airam 5 year model risk: 3.1%. NCI Lifetime model risk: 8.9%. Prior Study Comparison: 05/16/2019 Bilateral Screening Mammogram, [facility]. 06/25/2020 Bilateral Screening Mammogram, [facility]. 07/23/2021 Bilateral Screening Mammogram, [facility]. Tissue Density: Left: There are scattered fibroglandular densities. Findings: Analyzed By CAD. Mammogram Grouped punctate microcalcifications medial left breast are unchanged. No significant change from prior exams. Technique: Method: Targeted. Findings: The medial section of the breast of the left breast, the axilla of the left breast and the retroareolar of the left breast were scanned. Targeted ultrasound medial half along the site of patient's pain, 6:00 to 12:00. There is no solid or cystic lesion. Overall Assessment: Benign, BI-RAD 2 Assessment: MG 3D diag mammo w/cad LT - Left: Benign, BI-RAD 2. US breast limited LT - Left: Benign, BI-RAD 2. Management: Screening Mammogram of both breasts in 6 months. Patient should continue monthly self breast exams. A negative mammogram should not preclude additional follow-up of suspicious palpable abnormalities. Recommend further clinical management of patient's medial left breast pain. Electronically signed and approved by: Elizabeth Ross M.D. Radiologist
== END | disposition home or self-care (01) ==
LOC: RADMAMWWP 09:45
PROVIDERS: ATTEND Family Medicine
DX: R92.0 Mammographic microcalcification found on diagnostic imaging of breast (principal); Z78.0 Asymptomatic menopausal state; Z80.3 Family history of malignant neoplasm of breast
CPT/HCPCS: 77065; 76642; G0279; 77061

== ENCOUNTER → 2022-01-20 | Outpatient (CLI) | payer MEDICARE ==
[2022-01-20 14:56] LABS: Creatine Kinase 174 U/L (26-186); Ferritin 65.4 ng/mL (10.0-291.0); Iron 93 ug/dL (50-170); Magnesium 2.3 mg/dL (1.5-2.4); Total Iron Binding Capacity 392 ug/dL (228-460)
[2022-01-20 15:02] LABS: Vitamin B12 >2000.0 pg/mL (200.0-944.0)
[2022-01-20 15:39] LABS: Protein, Total 6.4 g/dL (6.2-8.2)
[2022-01-20 16:51] LABS: Cyclic Citrull Pep IgG Unit <0.5 U/mL; Cyclic Citrullinated Pep IgG NEGATIVE (NEGATIVE)
[2022-01-21 12:07] LABS: Free Kappa Lt Chain Qnt, Serum 1.41 mg/dL (0.33-1.94); Free Lambda Lt Chain Qnt, Seru 0.81 mg/dL (0.57-2.63)
[2022-01-21 12:22] LABS: Angiotensin-1 Converting Enz. 18 U/L (8-52)
[2022-01-21 17:02] LABS: Albumin 3.95 g/dL (3.80-4.90); Gamma Globulin 0.84 g/dL (0.70-1.50)
[2022-01-22 10:58] LABS: Lyme IgG/IgM 0.34 Index
[2022-01-22 12:54] LABS: Alpha 1 Anti-Trypsin 129 mg/dL (90 - 200)
[2022-01-27 00:52] LABS: Alternaria Alternata IgG 3.5 mcg/mL (<13.6); Aspergillus fumigatus IgG NOT DETECTED (NOT DETECTED); Aureobasidium pullulans IgG 2.1 mcg/mL (<13.6); Cladosporium herbarium IgG 3.7 mcg/mL (<14.7); Phoma ssp. IgG 2.3 mcg/mL (<6.6); Saccaharomospora viridis NOT DETECTED (NOT DETECTED); Saccaharopoly. rectivirgula NOT DETECTED (NOT DETECTED)
== END | disposition home or self-care (01) ==
LOC: LABWHC1 09:01
PROVIDERS: ATTEND Family Medicine
DX: J45.30 Mild persistent asthma, uncomplicated (principal); M13.0 Polyarthritis, unspecified; E61.1 Iron deficiency; M79.10 Myalgia, unspecified site; E03.9 Hypothyroidism, unspecified; E53.8 Deficiency of other specified B group vitamins; E55.9 Vitamin D deficiency, unspecified
CPT/HCPCS: 36415; 82103; 82104; 82164; 82306; 82550; 82607; 82728; 82785; 83540; 83550; 83735; 83883; 84165; 84439; 84443; 85652; 86001; 86038; 86140; 86200; 86606; 86609; 86618

== ENCOUNTER → 2022-01-21 | Outpatient (CLI) | payer MEDICARE ==
[2022-01-22 10:56] LABS: Alternaria alternata IgE <0.10 kU/L; Aspergillus fumagatus IgE <0.10 kU/L; Birch IgE <0.10 kU/L; Cat Epith & Dander IgE <0.10 kU/L; Cladosporian herbarum IgE <0.10 kU/L; Clam IgE <0.10 kU/L; Cockroach IgE <0.10 kU/L; Codfish IgE <0.10 kU/L; Dermato. farinae IgE <0.10 kU/L; Dog Dander IgE <0.10 kU/L; Egg White IgE <0.10 kU/L; Elm IgE <0.10 kU/L; Maple (Box Elder) IgE <0.10 kU/L; Oak IgE <0.10 kU/L; Peanut IgE <0.10 kU/L; Ragweed,Common IgE <0.10 kU/L; Red Top (Bentgrass) IgE <0.10 kU/L; Scallop IgE <0.10 kU/L; Shrimp IgE <0.10 kU/L; Soybean IgE <0.10 kU/L; Walnut IgE (Food) <0.10 kU/L
== END | disposition home or self-care (01) ==
LOC: LABWHC1 16:21
PROVIDERS: ATTEND Internal Medicine Critical Care Medicine
DX: J30.1 Allergic rhinitis due to pollen (principal)
CPT/HCPCS: 36415; 82785; 86003

== ENCOUNTER → 2022-02-13 | Outpatient (CLI) | payer MEDICARE ==
--- NOTE | 2022-02-13 12:42 | BD ---
EXAMINATION TYPE: Axial Bone Density DATE OF EXAM: 02/13/2022 COMPARISON: NONE CLINICAL HISTORY: 71 year old Female. ICD-10 CODE: N95.1 POST MENOPAUSAL SYMPTOMS,M89.9 DISORDER OF BONE Height: 64 Weight: 182.9 FRAX RISK QUESTIONS: Alcohol (3 or more units per day): no Family History (Parent hip fracture): no Glucocorticoids (More than 3mos): no (Ex: prednisone, prednisolone, methylprednisolone, dexamethasone, and hydrocortisone). History of Fracture in Adulthood: yes Secondary Osteoporosis: 1. Type 1 Diabetes: no 2. Hyperthyroidism: no 3. Menopause before 45: no 4. Malnutrition: no 5. Chronic liver disease: no Rheumatoid Arthritis: no Current Tobacco Use: no RISK FACTORS HISTORY OF: History of Wrist Fracture: left When: 2020 Surgery to Spine/Hip(right/left)/Wrist (right/left): no Family History of Osteoporosis: no Active: yes Diet low in dairy products/other sources of calcium: yes Postmenopausal woman: yes Lost more than 2 inches in height since high school: no MEDICATIONS: Prednisone or other steroids: asthma meds Additional History: EXAM MEASUREMENTS: Bone mineral densitometry was performed using the [employer] System. Bone mineral density as measured about the Lumbar spine is: ----- L1-L4(G/cm2): 1.113 T Score Values are as follows: ----- L1: -0.8 ----- L2: -0.6 ----- L3: -0.6 ----- L4: -0.4 ----- L1-L4: -0.6 Bone mineral density has: decreased -3.4 % since study of: 04.06.2001 Bone mineral density about the R hip (g/cm2): 0.961 Bone mineral density about the L hip (g/cm2): 0.924 T Score values are as follows: -----R Neck: -0.6 -----L Neck: -0.8 -----R Total: -0.1 -----L Total: -0.3 Bone mineral density has: decreased -6.7 % since study of: 04.06.2001 FRAX%s: The graph provided illustrates a 13.1% chance for a major osteoporotic fx and a 1.2% chance f or the hips probability for fx in 10 years time. IMPRESSION: Normal (Values between +1 and -1 indicate normal bone mass). Consider repeating this study in 5 year s or sooner if there is some new clinical indication. NOTE: T-SCORE=SD OF THE YOUNG ADULT MEAN.
== END | disposition home or self-care (01) ==
LOC: RADBDWWP 09:49
PROVIDERS: ATTEND Family Medicine
DX: M89.9 Disorder of bone, unspecified (principal); Z78.0 Asymptomatic menopausal state
CPT/HCPCS: 77080

== ENCOUNTER → 2022-04-14 | Outpatient (CLI) | payer MEDICARE ==
[2022-04-14 18:32] LABS: ALT 15 U/L (8-44); AST 24 U/L (13-35); African American GFR (CKD) 99.8 (60.0-200.0); Albumin 4.4 g/dL (3.8-4.9); Albumin/Globulin Ratio 1.56 (1.60-3.17); Alkaline Phosphatase 100 U/L (41-126); BUN/Creat Ratio 13.45 Ratio (12.00-20.00); Blood Urea Nitrogen 9.5 mg/dL (9.0-27.0); Calcium 9.6 mg/dL (8.7-10.3); Carbon Dioxide 26.7 mmol/L (20.0-27.5); Chloride 107 mmol/L (96-109); Chol/HDL Ratio 5.09 Ratio; Globulin 2.8 g/dL (1.6-3.3); Glucose 96 mg/dL (70-110); LDL Cholesterol,Calculated 116.3 mg/dL (0.0-131.0); Non-African American GFR(CKD) 86.1 (60.0-200.0); Potassium 4.4 mmol/L (3.5-5.5); Sodium 144 mmol/L (135-145); Total Protein 7.2 g/dL (6.2-8.2)
== END | disposition home or self-care (01) ==
LOC: LABWHC1 11:02
PROVIDERS: ATTEND Internal Medicine Interventional Cardiology
DX: E78.2 Mixed hyperlipidemia (principal)
CPT/HCPCS: 36415; 80053; 80061

== ENCOUNTER → 2022-07-22 | Outpatient (CLI) | payer MEDICARE ==
--- NOTE | 2022-07-23 09:38 | MM ---
Reason for Exam: Screening (asymptomatic). Last screening mammogram was performed 12 month(s) ago. Patient History: Menarche at age 16. First Full-Term at age 26. Hysterectomy at age 69. Postmenopausal. Estrogen for 6 months. Mother had breast cancer, age 69. Risk Values: Airam 5 year model risk: 3.1%. NCI Lifetime model risk: 8.5%. Prior Study Comparison: 06/25/2020 Bilateral Screening Mammogram, [facility]. 07/23/2021 Bilateral Screening Mammogram, [facility]. 01/20/2022 Left MG 3D diag mammo w/cad LT, [facility]. Tissue Density: There are scattered fibroglandular densities. Findings: Analyzed By CAD. There is occasional scattered tiny round benign calcification throughout the bilateral breasts. There is no suspicious new group of microcalcifications or new suspicious mass in either breast. Overall Assessment: Negative, BI-RAD 1 Management: Screening Mammogram of both breasts in 1 year. A clinical breast exam by your physician is recommended on an annual basis and results should be correlated with mammographic findings. Electronically signed and approved by: Shawn Kay M.D.
== END | disposition home or self-care (01) ==
LOC: RADMAMWWP 14:41
PROVIDERS: ATTEND Family Medicine
DX: Z12.31 Encounter for screening mammogram for malignant neoplasm of breast (principal); Z78.0 Asymptomatic menopausal state; Z80.3 Family history of malignant neoplasm of breast
CPT/HCPCS: 77063; 77067

== ENCOUNTER → 2022-07-28 | Outpatient (CLI) | payer MEDICARE ==
[2022-07-28 22:42] LABS: Basophils # (A) 0.03 X 10*3/uL (0.00-0.10); Basophils % (A) 0.6 %; Eosinophils # (A) 0.02 X 10*3/uL (0.04-0.35); Eosinophils % (A) 0.4 %; HCT 33.3 % (37.2-46.3); HGB 11.6 g/dL (12.0-15.0); Immature Grans, Automated 0.4 %; Lymphocytes # (A) 1.88 X 10*3/uL (0.90-5.00); Lymphocytes % (A) 39.4 %; MCH 34.9 pg (27.0-32.0); MCHC 34.8 g/dL (32.0-37.0); MCV 100.3 fL (80.0-97.0); Mean Platelet Volume 9.9 fL (9.5-12.2); Monocytes # (A) 0.33 X 10*3/uL (0.20-1.00); Monocytes % (A) 6.9 %; NRBC Per 100 WBC 0 /100 WBCS (0.0-0.0); Neutrophils # (A) 2.49 X 10*3/uL (1.80-7.70); Neutrophils % (A) 52.3 %; Platelet Count 147 X 10*3/uL (140-440); RBC 3.32 X 10*6/uL (4.10-5.20); RDW 13.1 % (11.5-14.5); WBC 4.77 X 10*3/uL (4.50-10.00)
[2022-07-28 22:47] LABS: Albumin 4.5 g/dL (3.8-4.9); Albumin/Globulin Ratio 1.8 (1.60-3.17); Anion Gap 8.4 mmol/L (10.00-18.00); Blood Urea Nitrogen 12.6 mg/dL (9.0-27.0); Calcium 9.7 mg/dL (8.7-10.3); Carbon Dioxide 27.6 mmol/L (20.0-27.5); Globulin 2.5 g/dL (1.6-3.3); Non-African American GFR(CKD) 87.2 (60.0-200.0); Potassium 3.7 mmol/L (3.5-5.5); Total Bilirubin 0.3 mg/dL (0.30-1.20)
== END | disposition home or self-care (01) ==
LOC: LABWHC1 15:33
PROVIDERS: ATTEND Internal Medicine Gastroenterology
DX: D69.6 Thrombocytopenia, unspecified (principal)
CPT/HCPCS: 36415; 80053; 85025

== ENCOUNTER → 2022-07-30 | Outpatient (CLI) | payer MEDICARE ==
[2022-07-30 14:26] LABS: Basophils # (A) 0.02 X 10*3/uL (0.00-0.10); Basophils % (A) 0.6 %; Eosinophils # (A) 0.02 X 10*3/uL (0.04-0.35); Eosinophils % (A) 0.6 %; HCT 34.6 % (37.2-46.3); HGB 12.2 g/dL (12.0-15.0); Immature Grans, Automated 0.3 %; Lymphocytes # (A) 1.36 X 10*3/uL (0.90-5.00); Lymphocytes % (A) 37.8 %; MCH 35.3 pg (27.0-32.0); MCHC 35.3 g/dL (32.0-37.0); Mean Platelet Volume 9.8 fL (9.5-12.2); Monocytes # (A) 0.33 X 10*3/uL (0.20-1.00); Monocytes % (A) 9.2 %; NRBC Per 100 WBC 0 /100 WBCS (0.0-0.0); Neutrophils # (A) 1.86 X 10*3/uL (1.80-7.70); Neutrophils % (A) 51.5 %; Platelet Count 153 X 10*3/uL (140-440); RBC 3.46 X 10*6/uL (4.10-5.20)
[2022-07-30 14:48] LABS: Chol/HDL Ratio 4.41 Ratio; LDL Cholesterol,Calculated 112.6 mg/dL (0.0-131.0)
[2022-07-30 15:00] LABS: ALT 23 U/L (8-44); AST 26 U/L (13-35); Albumin 4.4 g/dL (3.8-4.9); Albumin/Globulin Ratio 1.94 (1.60-3.17); Alkaline Phosphatase 118 U/L (41-126); BUN/Creat Ratio 10.75 Ratio (12.00-20.00); Blood Urea Nitrogen 9.2 mg/dL (9.0-27.0); Calcium 9.5 mg/dL (8.7-10.3); Carbon Dioxide 25.5 mmol/L (20.0-27.5); Chloride 106 mmol/L (96-109); Globulin 2.3 g/dL (1.6-3.3); Glucose 104 mg/dL (70-110); Non-African American GFR(CKD) 68.2 (60.0-200.0); Sodium 143 mmol/L (135-145); Total Protein 6.6 g/dL (6.2-8.2)
== END | disposition home or self-care (01) ==
LOC: LABWHC1 10:46
PROVIDERS: ATTEND Family Medicine
DX: E03.9 Hypothyroidism, unspecified (principal); E78.2 Mixed hyperlipidemia
CPT/HCPCS: 36415; 80053; 80061; 84439; 84443; 85025

== ENCOUNTER → 2023-02-06 | Outpatient (CLI) | payer MEDICARE ==
[2023-02-06 21:36] LABS: HCT 39.8 % (37.2-46.3); HGB 13.2 d/dL (12.0-15.0); MCH 34.9 pg (27.0-32.0); MCHC 33.2 d/dL (32.0-37.0); MCV 105.3 FL (80.0-97.0); Mean Platelet Volume 10.2 FL (9.5-12.2); NRBC Per 100 WBC 0 X 10*3/uL (0.00-0.01); Platelet Count 170 X 10*3/uL (140-440); RBC 3.78 X 10*6/uL (4.10-5.20); RDW 13.1 % (11.5-14.5); WBC 5.55 X 10*3/uL (4.50-10.00)
[2023-02-06 21:38] LABS: ALT 20 U/L (8-44); AST 18 U/L (13-35); Albumin 4.8 d/dL (3.8-4.9); Albumin/Globulin Ratio 1.78 Ratio (1.60-3.17); Alkaline Phosphatase 123 U/L (41-126); Blood Urea Nitrogen 15.6 mg/dL (9.0-27.0); Calcium 9.8 mg/dL (8.7-10.3); Carbon Dioxide 26.9 mmol/L (21.6-31.8); Chloride 104 mmol/L (96-109); Globulin 2.7 d/dL (1.6-3.3); Glucose 91 mg/dL (70-110); LDL Cholesterol,Calculated 138.1 mg/dL (0.0-131.0); Potassium 4.2 mmol/L (3.5-5.5); Sodium 143 mmol/L (135-145); T4, Free (Free Thyroxine) 1.03 ng/dL (0.80-1.80); Total Bilirubin 0.5 mg/dL (0.3-1.2); Total Protein 7.5 d/dL (6.2-8.2)
[2023-02-06 22:05] LABS: Basophils # (A) 0.02 X 10*3/uL (0.00-0.10); Basophils % (A) 0.4 %; Eosinophils # (A) 0.01 X 10*3/uL (0.04-0.35); Eosinophils % (A) 0.2 %; Lymphocytes # (A) 1.97 X 10*3/uL (0.90-5.00); Lymphocytes % (A) 35.5 %; Monocytes # (A) 0.37 X 10*3/uL (0.20-1.00); Monocytes % (A) 6.7 %; Neutrophils % (A) 55.8 %
[2023-02-06 22:06] LABS: Vitamin B12 >3600.0 pg/mL (200.0-944.0)
== END | disposition home or self-care (01) ==
LOC: LABWHC1 13:30
PROVIDERS: ATTEND Family Medicine
DX: Z00.00 Encounter for general adult medical examination without abnormal findings (principal); E03.9 Hypothyroidism, unspecified; E78.2 Mixed hyperlipidemia; E55.9 Vitamin D deficiency, unspecified; E53.8 Deficiency of other specified B group vitamins; R73.9 Hyperglycemia, unspecified
CPT/HCPCS: 36415; 80053; 80061; 82306; 82607; 83036; 84439; 84443; 85025

== ENCOUNTER → 2023-03-31 | Outpatient (CLI) | payer MEDICARE ==
[2023-03-31 20:24] LABS: Thyroid Peroxidase Antibodies <9.0 U/mL (0.0-33.0)
[2023-03-31 22:43] LABS: Egg White IgE <0.10 kU/L
[2023-04-01 12:00] LABS: Egg Yolk IgE Class CLASS 0
[2023-04-04 14:18] LABS: Peanut IgG <2.0 mcg/mL (<2.0); Soybean IgG <2.0 mcg/mL (<2.0)
[2023-04-04 14:19] LABS: Cow's Milk IgG 44.3 mcg/mL (<2.0); Tomato IgG <2.0 mcg/mL (<2.0)
[2023-04-04 14:20] LABS: Potato IgG <2.0 mcg/mL (<2.0)
[2023-04-04 14:21] LABS: Corn IgG 4.1 mcg/mL (<2.0); Wheat IgG 3.9 mcg/mL (<2.0)
== END | disposition home or self-care (01) ==
LOC: LABWHC1 11:44
PROVIDERS: ATTEND Otolaryngology
DX: J30.89 Other allergic rhinitis (principal)
CPT/HCPCS: 36415; 84439; 84443; 86001; 86003; 86376

== ENCOUNTER → 2023-07-21 | Outpatient (CLI) | payer MEDICARE ==
--- NOTE | 2023-07-21 13:36 | CTL ---
EXAMINATION TYPE: CT Low Dose Lung DATE OF EXAM ORDERED: 07/21/2023 HISTORY: . Lung cancer screening CT DLP: 86.[address] CTDI: 2.4 mGy Automated exposure control for dose reduction was used. SCREENING VISIT: COMPARISON: 08/06/2016 TECHNIQUE: Low dose computed tomography scan was performed through the chest at 1 mm thick sections a nd reconstructed images in multiple planes at 1 mm and [address] DIAGNOSTIC QUALITY: Satisfactory FINDINGS: There is biapical scarring. Mild emphysematous changes. No consolidative pneumonia. No pleural effusi on or pneumothorax. Mild central bronchiectasis. No suspicious pulmonary nodules. Postcholecystectomy changes are seen and there is small hiatal hernia with multilevel hypertrophic an d degenerative change of the spine. The heart is mildly enlarged. No significant coronary artery calcification. There is a trace amount p ericardial fluid. Mild atherosclerotic change of the aorta. Assessment for adenopathy limited due to the noncontrast technique. IMPRESSION: 1. No suspicious pulmonary nodules. CT LUNG RAD AND CT CHEST RECOMMENDATION: Lung-Rad 1 Negative: Continue annual screening with LDCT in 12 months.
== END | disposition home or self-care (01) ==
LOC: RADCTMAIN 11:52
PROVIDERS: ATTEND Family Medicine
DX: Z12.2 Encounter for screening for malignant neoplasm of respiratory organs (principal); Z87.891 Personal history of nicotine dependence
CPT/HCPCS: 71271

== ENCOUNTER → 2023-07-23 | Outpatient (CLI) | payer MEDICARE ==
--- NOTE | 2023-07-23 08:07 | MM ---
Reason for Exam: Clinical finding. Last screening mammogram was performed 12 month(s) ago. Patient History: Menarche at age 16. First Full-Term at age 26. Hysterectomy at age 69. Postmenopausal. Estrogen for 6 months. Mother had breast cancer, age 69. Risk Values: Airam 5 year model risk: 3.1%. NCI Lifetime model risk: 8.1%. Tissue Density: There are scattered fibroglandular densities. Findings: Analyzed By CAD. No evidence for mass or distortion. No suspicious calcifications. Correlate clinically. Overall Assessment: Incomplete: need additional imaging evaluation, BI-RAD 0 Management: Diagnostic Breast Ultrasound of the left breast. . Results were given to the patient verbally at the time of exam. Patient should continue monthly self-breast exams. A clinical breast exam by your physician is recommended on an annual basis. This exam should not preclude additional follow-up of suspicious palpable abnormalities. Note on Airam scores and lifetime risk: 1. A Airam score greater than 3% is considered moderate risk. If this is the case, consider specialist referral to assess eligibility for a risk reducing agent. 2. If overall lifetime risk for the development of breast cancer is 20% or higher, the patient may qualify for future screening with alternating mammogram and breast MRI. Electronically signed and approved by: Raheem Ovalle M.D. Radiologis
--- NOTE | 2023-07-23 08:32 | USB ---
Reason for Exam: Clinical finding. Patient History: Menarche at age 16. First Full-Term at age 26. Hysterectomy at age 69. Postmenopausal. Estrogen for 6 months. Niece had breast cancer, age 38. Mother had breast cancer, age 69. Risk Values: Airam 5 year model risk: 3.1%. NCI Lifetime model risk: 8.1%. Technique: Method: Targeted. Prior Study Comparison: 07/23/2021 Bilateral Screening Mammogram, [facility]. 01/20/2022 Left MG 3D diag mammo w/cad LT, [facility]. 07/22/2022 Bilateral MG 3D screening mammo w/cad, [facility]. Findings: The lateral section of the breast of the left breast, the lower section of the breast of the left breast, the axilla of the left breast and the retroareolar of the left breast were scanned. No solid or cystic masses are identified.. Correlate clinically. Overall Assessment: Negative, BI-RAD 1 Management: Screening Mammogram of both breasts in 1 year. A clinical breast exam by your physician is recommended on an annual basis and results should be correlated with mammographic findings. This exam should not preclude additional follow-up of suspicious palpable abnormalities. Results were given to the patient verbally at the time of exam. Electronically signed and approved by: Raheem Ovalle M.D. Radiologis
[2023-07-23 15:36] LABS: Basophils # (A) 0.03 X 10*3/uL (0.00-0.10); Basophils % (A) 0.5 %; Eosinophils # (A) 0.01 X 10*3/uL (0.04-0.35); Eosinophils % (A) 0.2 %; HCT 39.6 % (37.2-46.3); HGB 13.4 g/dL (12.0-15.0); Lymphocytes # (A) 2.55 X 10*3/uL (0.90-5.00); Lymphocytes % (A) 40.7 %; MCH 35.1 pg (27.0-32.0); MCHC 33.8 g/dL (32.0-37.0); MCV 103.7 FL (80.0-97.0); Mean Platelet Volume 9.6 FL (9.5-12.2); Monocytes # (A) 0.49 X 10*3/uL (0.20-1.00); Monocytes % (A) 7.8 %; NRBC Per 100 WBC 0 X 10*3/uL (0.00-0.01); Neutrophils # (A) 3.13 X 10*3/uL (1.80-7.70); Platelet Count 142 X 10*3/uL (140-440); RBC 3.82 X 10*6/uL (4.10-5.20); RDW 13.6 % (11.5-14.5); WBC 6.26 X 10*3/uL (4.50-10.00)
[2023-07-23 16:05] LABS: ALT 23 U/L (8-44); AST 19 U/L (13-35); Albumin 4.3 g/dL (3.8-4.9); Albumin/Globulin Ratio 1.95 Ratio (1.60-3.17); Alkaline Phosphatase 105 U/L (41-126); BUN/Creat Ratio 18.83 Ratio (12.00-20.00); Blood Urea Nitrogen 11.3 mg/dL (9.0-27.0); Carbon Dioxide 29.8 mmol/L (21.6-31.8); Chloride 105 mmol/L (96-109); Globulin 2.2 g/dL (1.6-3.3); Glucose 90 mg/dL (70-110); Potassium 4.5 mmol/L (3.5-5.5); Sodium 144 mmol/L (135-145); Total Bilirubin 0.4 mg/dL (0.3-1.2); Total Protein 6.5 g/dL (6.2-8.2)
== END | disposition home or self-care (01) ==
LOC: RADMAMWWP 07:29
PROVIDERS: ATTEND Family Medicine
DX: R92.323 Mammographic fibroglandular density, bilateral breasts (principal); N64.4 Mastodynia; K76.0 Fatty (change of) liver, not elsewhere classified; Z78.0 Asymptomatic menopausal state; Z80.3 Family history of malignant neoplasm of breast
CPT/HCPCS: 80053; 85025; 77066; 76642; G0279; 77062

== ENCOUNTER → 2023-07-23 | Outpatient (CLI) | payer MEDICARE | END | disposition home or self-care (01) | LOC: LABWHC1 08:25 | PROVIDERS: ATTEND Internal Medicine Gastroenterology | DX: Z53.9 Procedure and treatment not carried out, unspecified reason (principal) ==

== ENCOUNTER → 2023-10-30 | Outpatient (CLI) | payer MEDICARE ==
--- NOTE | 2023-11-02 16:30 | MR ---
EXAMINATION TYPE: MR angio head wo con DATE OF EXAM: 10/30/2023 COMPARISON: Previous MRI brain 10/04/2021 HISTORY: 73-year-old female ATTN; COW; R93.0 ABNORMAL FINDINGS ON DX 2007 Abnormal MRA Brain, family hx TECHNIQUE: High-resolution 3-D [id number] imaging of the [place]. Rotational 3-D reconst ructions generated on a dedicated independent workstation. FINDINGS: The vertebral arteries are codominant and patent. The basilar artery is patent as is the remainder of the posterior circulation. The bilateral internal carotid arteries and remainder of the anterior circulation is patent. No aneurysmal change is seen. IMPRESSION: No intracranial arterial occlusion, significant stenosis, or aneurysmal change is seen. If persistent concern at a particular location, the exam can be reviewed with directed attention.
== END | disposition home or self-care (01) ==
LOC: RADMRIMAIN 12:58
PROVIDERS: ATTEND Family Medicine
DX: R93.0 Abnormal findings on diagnostic imaging of skull and head, not elsewhere classified (principal)
CPT/HCPCS: 70544

== ENCOUNTER → 2023-11-07 | Outpatient (CLI) | payer MEDICARE ==
[2023-11-07 23:01] LABS: ALT 16 U/L (8-44); AST 16 U/L (13-35); LDL Cholesterol,Calculated 111.7 mg/dL (0.0-131.0)
== END | disposition home or self-care (01) ==
LOC: LABWHC1 11:35
PROVIDERS: ATTEND Internal Medicine Interventional Cardiology
DX: E78.2 Mixed hyperlipidemia (principal)
CPT/HCPCS: 36415; 80061; 84450; 84460

== ENCOUNTER 2024-02-03 19:11 | Emergency (ER) | payer MEDICARE ==
[2024-02-03 19:25] VITALS: TEMP 98
--- NOTE | 2024-02-03 20:14 | ED ---
Headache HPI - General Source: patient, RN notes reviewed Mode of arrival: ambulatory Limitations: no limitations <Evelyn Carlos - Last Filed: 02/03/24 20:12> - General Source: RN notes reviewed, old records reviewed Mode of arrival: ambulatory Limitations: no limitations - History of Present Illness MD Complaint: headache, "migraine" -: days(s) Location: left, frontal, temporal Severity: severe Severity scale (1-10): 8 Quality: throbbing, pulsatile Consistency: intermittent Improves With: nothing Worsens With: none <Barrie Broderick - Last Filed: 02/13/24 21:36> - General Chief Complaint: Headache Stated Complaint: facial pain Time Seen by Provider: 02/03/24 20:13 - History of Present Illness Initial Comments: Quick note: 73-year-old female presented to the ER with a chief complaint of a left-sided facial tingling. She states that started around 5 PM. She states it feels like her left eye is numb and has pain radiating into her jaw. She does report a family history of brain aneurysms. Patient reports that since arriving in the ER she now was endorsing left arm tingling sensation. Patient was seen at urgent care prior to arrival and sent to the ER for evaluation to rule out temporal arteritis. (Evelyn Carlos) This is a 73-year-old female to the ER for evaluation of severe headache with left-sided numbness and tingling. Left-sided facial numbness and tingling no nausea no vomiting concern for temporal arteritis (Barrie Broderick) - Related Data Home Medications Medication Instructions Recorded Confirmed ALPRAZolam [Xanax] 0.25 mg PO BID PRN 08/09/14 02/26/21 Albuterol Inhaler [Ventolin Hfa 1 - 2 puff INHALATION RT-Q6H PRN 08/09/14 Inhaler] Cholecalciferol [Vitamin D3 (25 2,000 unit PO DAILY@1200 05/02/15 02/26/21 Mcg = 1000 Iu)] Fluticasone Nasal [place] [Flonase 1 spray EA NOSTRIL DAILY PRN 05/02/15 02/26/21 Nasal [place]] Meclizine [Antivert] 25 mg PO TID PRN 05/02/15 02/26/21 Tiotropium 18 Mcg/Puff [Spiriva] 1 cap INHALATION RT-DAILY 05/02/15 02/26/21 Fexofenadine/Pseudoephedrine 1 each PO DAILY PRN 06/25/15 02/26/21 [Lila-D 24 Hour Tablet] [place]-3(600mg) 600 mg PO DAILY 06/25/15 02/26/21 Dulera 1 puff INHALATION DAILY 06/05/20 02/26/21 Levothyroxine Sodium [Synthroid] 25 mcg PO DAILY 06/05/20 02/26/21 Montelukast [Singulair] 10 mg PO DAILY 06/05/20 02/26/21 diphenhydrAMINE [Benadryl] 25 mg PO TID PRN 06/05/20 02/26/21 Allergies Allergy/AdvReac Type Severity Reaction Status Date / Time peanut Allergy SHORTNESS Verified 02/03/24 19:24 OF BREATH-THROAT CLOSES ENVIRONMENTAL ALLERGIES Allergy SINUS Uncoded 02/03/24 19:24 SYMPTOMS-MOLD,POLLEN,DUST,TREES,GRASS,ETC. Review of Systems ROS Other: All systems not noted in ROS Statement are negative. <Evelyn Carlos - Last Filed: 02/03/24 20:12> ROS Other: All systems not noted in ROS Statement are negative. <Barrie Broderick - Last Filed: 02/13/24 21:36> ROS Statement: Those systems with pertinent positive or pertinent negative responses have been documented in the HPI. Past Medical History Past Medical History: Asthma, Coronary Artery Disease (CAD), COPD, Eye Disorder, GERD/Reflux, Hearing Disorder / Deafness, Hyperlipidemia, Mitral Valve Prolapse (MVP), Osteoarthritis (OA) Additional Past Medical History / Comment(s): COPD, mitral valve prolapse, questionable history of pulmonary hypertension and enlarged cardiac structures on the right,colonic polyps,ATHRITIS KNEES,WRISTS,SHOULDERS, HX VERTIGO, WEARS GLASSES /CONTACTS-DAILY USE, [place]. EARS- HAS AIDS BUT DOESN'T WEAR, History of Any Multi-Drug Resistant Organisms: None Reported Past Surgical History: Adenoidectomy, Cholecystectomy, Tonsillectomy, Tubal Ligation Additional Past Surgical History / Comment(s): colonoscopy, 2 implanted teeth LOWER RT SIDE, LIPO SUCTION [place]. THIGHS (1994), NASAL SX (FIXED BROKEN NOSE), YOU 05/04/15-previous YOU and cardiac catheterization in 2011 Past Anesthesia/Blood Transfusion Reactions: Postoperative Nausea & Vomiting (PONV) Additional Past Anesthesia/Blood Transfusion Reaction / Comment(s): vertigo Past Psychological History: Anxiety Smoking Status: Former smoker Past Alcohol Use History: Occasional Past Drug Use History: None Reported - Past Family History Father Family Medical History: Cancer Additional Family Medical History / Comment(s): ESOPHAGEAL CANCER, HX ETOH AND SMOKING Mother Family Medical History: Cancer, Diabetes Mellitus Additional Family Medical History / Comment(s): BREAST CANCER, SKIN CANCER AND EYE ANEURYSMS Sister(s) Additional Family Medical History / Comment(s): BRAIN AND EYE ANEURYSMS. <Evelyn Carlos - Last Filed: 02/03/24 20:12> General Exam Limitations: no limitations <Evelyn Carlos - Last Filed: 02/03/24 20:12> General appearance: alert, in no apparent distress Head exam: Present: atraumatic, normocephalic, normal inspection Eye exam: Present: normal appearance, PERRL, EOMI. Absent: scleral icterus, conjunctival injection, periorbital swelling ENT exam: Present: normal exam, mucous membranes moist Neck exam: Present: normal inspection. Absent: tenderness, meningismus, lymphadenopathy Respiratory exam: Present: normal lung sounds bilaterally. Absent: respiratory distress, wheezes, rales, rhonchi, stridor Cardiovascular Exam: Present: regular rate, normal rhythm, normal heart sounds. Absent: systolic murmur, diastolic murmur, rubs, gallop, clicks GI/Abdominal exam: Present: soft, normal bowel sounds. Absent: distended, tenderness, guarding, rebound, rigid Extremities exam: Present: normal inspection, full ROM, normal capillary refill. Absent: tenderness, pedal edema, joint swelling, calf tenderness Back exam: Present: normal inspection Neurological exam: Present: alert, oriented X3, CN II-XII intact Psychiatric exam: Present: normal affect, normal mood Skin exam: Present: warm, dry, intact, normal color. Absent: rash <Barrie Broderick - Last Filed: 02/13/24 21:36> - General Exam Comments Initial Comments: Visual Physical Exam Vital signs reviewed General: Well-appearing, nontoxic, no acute distress. Head: Normocephalic, atraumatic Eyes: PERRLA, EOMI ENT: Airway patent Chest: Nonlabored breathing Skin: No visual rash, normal skin tone Neuro: Alert and oriented 3 Musculoskeletal: No gross abnormalities (Evelyn Carlos) Course <Barrie Broderick - Last Filed: 02/13/24 21:36> Vital Signs 02/03/24 02/03/24 02/03/24 19:22 21:56 22:58 Temperature 98 F Pulse Rate 66 73 71 Respiratory 18 16 18 Rate Blood Pressure 124/70 152/89 O2 Sat by Pulse 97 100 99 Oximetry - Reevaluation(s) Reevaluation #1: Medical records reviewed (Barrie Broderick) Reevaluation #2: Patient symptoms improved (Barrie Broderick) Reevaluation #3: Patient informed of results questions answered (Barrie Broderick) Reevaluation #4: Was pt. sent in by a medical professional or institution (, PA, COAL PIPELINE OPERATOR, urgent care, hospital, or assisted...) When possible be specific @ -no Did you speak to anyone other than the patient for history (EMS, parent, family, police, friend...)? What history was obtained from this source @ -no Did you review nursing and triage notes (agree or disagree)? Why? @ -agree Are old charts reviewed (outside hosp., previous admission, EMS record, old EKG, old radiological studies, urgent care reports/EKG's, assisted records)? Report findings @ -yes Differential Diagnosis (chest pain, altered mental status, abdominal pain women, abdominal pain men, vaginal bleeding, weakness, fever, dyspnea, syncope, headache, dizziness, GI bleed, back pain, seizure, CVA, palpatations, mental health, musculoskeletal)? @ -prior EKG interpreted by me (3pts min.). @ -no X-rays interpreted by me (1pt min.). @ -no CT interpreted by me (1pt min.). @ -Yes negative for acute disease U/S interpreted by me (1pt. min.). @ -no What testing was considered but not performed or refused? (CT, X-rays, U/S, labs)? Why? @ -none What meds were considered but not given or refused? Why? @ -none Did you discuss the management of the patient with other professionals (professionals i.e. , PA, COAL PIPELINE OPERATOR, lab, RT, psych nurse, director of social work, state game warden, teacher, cavalry officer, assistant case manager)? Give summary @ -no Was smoking cessation discussed for >3mins.? @ -no Was critical care preformed (if so, how long)? @ -no Were there social determinants of health that impacted care today? How? (Homelessness, low income, unemployed, alcoholism, drug addiction, transportation, low edu. Level, literacy, decrease access to med. care, [facility], rehab)? @ -none Was there de-escalation of care discussed even if they declined (Discuss DNR or withdrawal of care, Hospice)? DNR status @ -no What co-morbidities impacted this encounter? (DM, HTN, Smoking, COPD, CAD, Cancer, CVA, ARF, Chemo, Hep., AIDS, mental health diagnosis, sleep apnea, morbid obesity)? @ -none Was patient admitted / discharged? Hospital course, mention meds given and route, prescriptions, significant lab abnormalities, going to OR and other pertinent info. @ -73 female with significant headache abnormal CT scanning here in the ER and can be discharged home Undiagnosed new problem with uncertain prognosis? @ -no Drug Therapy requiring intensive monitoring for toxicity (Heparin, Nitro, Insulin, Cardizem)? @ -no Were any procedures done? @ -no Diagnosis/symptom? @ -Headache Acute, or Chronic, or Acute on Chronic? @ -Acute Uncomplicated (without systemic symptoms) or Complicated (systemic symptoms)? @ -Complicated Side effects of treatment? @ -no Exacerbation, Progression, or Severe Exacerbation? @ -exacerbation Poses a threat to life or bodily function? How? (Chest pain, USA, OR, pneumonia, PE, COPD, DKA, ARF, appy, cholecystitis, CVA, Diverticulitis, Homicidal, Suicidal, threat to staff... and all critical care pts) @ -yes with significant headache (Barrie Broderick) Medical Decision Making <Evelyn Carlos - Last Filed: 02/03/24 20:12> - Lab Data Result diagrams: 02/03/24 20:45 02/03/24 20:45 - EKG Data -: EKG Interpreted by Me (EKG is sinus 62 HI 145 QRS 100 QTc 405) <Barrie Broderick - Last Filed: 02/13/24 21:36> - Medical Decision Making I performed the quick note portion of this chart. Electronically signed by Evelyn Carlos PA-C (Evelyn Carlos) 73 female to ER for headache. Headache is improved here in the ER feels well patient can be discharged home (Barrie Broderick) - Lab Data Lab Results 02/03/24 02/03/24 Range/Units 20:45 20:45 WBC 7.2 (3.8-10.6) k/uL RBC 3.86 (3.80-5.40) m/uL Hgb 13.6 (11.4-16.0) gm/dL Hct 40.4 (34.0-46.0) % MCV 104.8 H (80.0-100.0) fL MCH 35.4 H (25.0-35.0) pg MCHC 33.7 (31.0-37.0) g/dL RDW 13.5 (11.5-15.5) % Plt Count 156 (150-450) k/uL MPV 7.8 Neutrophils % 66 % Lymphocytes % 26 % Monocytes % 6 % Eosinophils % 0 % Basophils % 1 % Neutrophils # 4.8 (1.3-7.7) k/uL Lymphocytes # 1.9 (1.0-4.8) k/uL Monocytes # 0.4 (0-1.0) k/uL Eosinophils # 0.0 (0-0.7) k/uL Basophils # 0.0 (0-0.2) k/uL Macrocytosis Slight ESR 27 (0-30) mm/Hr Sodium 141 (137-145) mmol/L Potassium 4.2 (3.5-5.1) mmol/L Chloride 108 H (98-107) mmol/L Carbon Dioxide 24 (22-30) mmol/L Anion Gap 9 mmol/L BUN 18 H (7-17) mg/dL Creatinine 0.61 (0.52-1.04) mg/dL Est GFR (CKD-EPI)AfAm >90 (>60 ml/min/1.73 sqM) Est GFR (CKD-EPI)NonAf >90 (>60 ml/min/1.73 sqM) Glucose 93 (74-99) mg/dL Calcium 9.3 (8.4-10.2) mg/dL Total Bilirubin 0.5 (0.2-1.3) mg/dL AST 24 (14-36) U/L ALT 17 (4-34) U/L Alkaline Phosphatase 129 H (38-126) U/L C-Reactive Protein 1.1 H (<1.0) mg/dL Total Protein 7.5 (6.3-8.2) g/dL Albumin 4.8 (3.5-5.0) g/dL Disposition <Evelyn Carlos - Last Filed: 02/03/24 20:12> Is patient prescribed a controlled substance at d/c from ED?: No Time of Disposition: 22:00 <Barrie Broderick - Last Filed: 02/13/24 21:36> Clinical Impression: Headache Disposition: HOME SELF-CARE Condition: Good Instructions (If sedation given, give patient instructions): Acute Headache (ED) Referrals: Kaylin Stone MD [Primary Care Provider] - 1-2 days
[2024-02-03 21:32] LABS: ALT 17 U/L (4-34); AST 24 U/L (14-36); African American GFR (CKD) >90 (>60 ml/min/1.73 sqM); Albumin 4.8 g/dL (3.5-5.0); Alkaline Phosphatase 129 U/L (38-126); Anion Gap 9 mmol/L; Blood Urea Nitrogen 18 mg/dL (7-17); C Reactive Protein 1.1 mg/dL (<1.0); Calcium 9.3 mg/dL (8.4-10.2); Carbon Dioxide 24 mmol/L (22-30); Chloride 108 mmol/L (98-107); Glucose 93 mg/dL (74-99); Non-African American GFR(CKD) >90 (>60 ml/min/1.73 sqM); Potassium 4.2 mmol/L (3.5-5.1); Sodium 141 mmol/L (137-145); Total Bilirubin 0.5 mg/dL (0.2-1.3); Total Protein 7.5 g/dL (6.3-8.2)
[2024-02-03 21:39] LABS: Basophils % (A) 1 %; Eosinophils % (A) 0 %; HCT 40.4 % (34.0-46.0); HGB 13.6 gm/dL (11.4-16.0); Lymphocytes # (A) 1.9 k/uL (1.0-4.8); Lymphocytes % (A) 26 %; MCH 35.4 pg (25.0-35.0); MCHC 33.7 g/dL (31.0-37.0); MCV 104.8 fL (80.0-100.0); Macrocytosis Slight; Mean Platelet Volume 7.8; Monocytes # (A) 0.4 k/uL (0-1.0); Monocytes % (A) 6 %; Neutrophils # (A) 4.8 k/uL (1.3-7.7); Neutrophils % (A) 66 %; Platelet Count 156 k/uL (150-450); RBC 3.86 m/uL (3.80-5.40); RDW 13.5 % (11.5-15.5); WBC 7.2 k/uL (3.8-10.6)
[2024-02-03] MEDS: KETOROLAC 15 MG/ML 1 ML VIAL IVP STA (21:42)
[2024-02-03] MEDS: diphenhydrAMINE 50 MG/ML 1 ML VIAL IVP STA (21:44)
--- NOTE | 2024-02-03 21:44 | CT ---
EXAMINATION TYPE: CT brain wo con CT DLP: 1211.4 mGycm, Automated exposure control for dose reduction was used. DATE OF EXAM: 02/03/2024 9:28 PM COMPARISON: 10/30/2023. CLINICAL INDICATION:Female, 73 years old with history of left sided facial tingling, Left side facial numbness x 3 weeks TECHNIQUE: Brain: Axial CT images of the brain were obtained with coronal and sagittal reformats created and rev iewed. Contrast used: None. Oral contrast used: None. FINDINGS: Brain: Extra-axial spaces: No abnormal extra-axial fluid collections. Ventricular system: Within normal limits Cerebral parenchyma: No acute intraparenchymal hemorrhage or mass effect. The mcintyre-white junction is well differentiated. Cerebellum: Unremarkable. Mass effect: No evidence of midline shift. Intracranial vasculature: Atherosclerotic calcifications of the intracranial vessels. Soft tissues: Normal. Calvarium/osseous structures: No depressed skull fracture. Paranasal sinuses and mastoid air cells: Mild scattered paranasal sinus disease. Visualized orbits: Bilateral aphakia IMPRESSION: No acute intracranial process.
[2024-02-03] MEDS: DEXAMETHASONE SOD PHOSPHATE 10 MG/ML 1 ML VIAL IVP STA (21:45)
[2024-02-03] MEDS: SODIUM CHLORIDE 0.9% 1,000 ML IV STA (21:55)
[2024-02-03 21:57] VITALS: BP 152/89
[2024-02-03 22:59] VITALS: PULSE 71; RESP 18
[2024-02-04 02:24] LABS: Erythrocyte Sedimentation Rate 27 mm/Hr (0-30)
== END 2024-02-03 22:45 | disposition home or self-care (01) ==
LOC: EC 19:11
DX: R51.9 Headache, unspecified (principal); Z87.891 Personal history of nicotine dependence; Z90.49 Acquired absence of other specified parts of digestive tract; Z91.018 Allergy to other foods; Z91.048 Other nonmedicinal substance allergy status
CPT/HCPCS: 36415; 93005; 80053; 85652; 85025; 86140; 70450; 99284; 96374; 96375 ×2; 96361; J1200; J1100; J1885

== ENCOUNTER → 2024-02-24 | Outpatient (CLI) | payer MEDICARE ==
--- NOTE | 2024-02-25 12:02 | CA ---
Transthoracic Echo Report Name: Jocy Sapp Age: 73 Gender: F : 1950 Exam Date: 02/24/2024 16:36 Exam Location: [place] [facility] Ht (in): 63 Wt (lb): 175 Ordering Physician: Gumaro Chang MD Attending/Referring Phys: Nils Tee [facility] Selector Sally Grace RDCS Procedure CPT: Indications: [id number] FACIAL WEAKNESS Cardiac Hx: Technical Quality: Fair Contrast 1: Total Dose (mL): Contrast 2: Total Dose (mL): MEASUREMENTS (Male / Female) Normal Values 2D ECHO LV Diastolic Diameter PLAX 5.1 cm 4.2 - 5.9 / 3.9 - 5.3 cm LV Systolic Diameter PLAX 3.4 cm IVS Diastolic Thickness 1.1 cm 0.6 - 1.0 / 0.6 - 0.9 cm LVPW Diastolic Thickness 1.2 cm 0.6 - 1.0 / 0.6 - 0.9 cm LV Relative Wall Thickness 0.4 RV Internal Dim ED PLAX 1.9 cm LA Systolic Diameter LX 3.5 cm 3.0 - 4.0 / 2.7 - 3.8 cm LV Diastolic Volume MOD BP 51.4 cm??? 67 - 155 / 56 - 104 cm??? LV Systolic Volume MOD BP 20.7 cm??? 22 - 58 / 19 - 49 cm??? LV Ejection Fraction MOD BP 59.8 % >= 55 % LV Cardiac Index MOD BP 1081.3 cm???/min???m??? LV Diastolic Volume MOD 4C 45.0 cm??? LV Systolic Volume MOD 4C 18.9 cm??? LV Ejection Fraction MOD 4C 58.1 % LV Cardiac Index MOD 4C 918.5 cm???/min???m??? LV Diastolic Length 4C 6.2 cm LV Systolic Length 4C 4.7 cm LV Diastolic Volume MOD 2C 57.9 cm??? LV Systolic Volume MOD 2C 22.4 cm??? LV Ejection Fraction MOD 2C 61.3 % LV Cardiac Index MOD 2C 1247.8 cm???/min???m??? LV Diastolic Length 2C 6.0 cm LV Systolic Length 2C 4.8 cm LA Volume 53.0 cm??? 18 - 58 / 22 - 52 cm??? LA Volume Index 27.8 cm???/m??? 16 - 28 cm???/m??? M-MODE Aortic Root Diameter MM 2.9 cm LA Systolic Diameter MM 3.4 cm LA Ao Ratio MM 1.2 AV Cusp Separation MM 1.4 cm DOPPLER AV Peak Velocity 164.0 cm/s AV Peak Gradient 10.8 mmHg MV Area PHT 3.2 cm??? Mitral E Point Velocity 76.1 cm/s Mitral A Point Velocity 93.3 cm/s Mitral E to A Ratio 0.8 MV Deceleration Time 238.2 ms TR Peak Velocity 262.4 cm/s TR Peak Gradient 27.5 mmHg Right Ventricular Systolic Press 32.0 mmHg FINDINGS Left Ventricle Left ventricular ejection fraction is estimated at 55-60 %. Mildly increased septal wall thickness. Mildly increased posterior wall thickness. No obvious regional wall motion abnormalities. Right Ventricle Normal right ventricular size and function. Right ventricular systolic pressure within normal limits. Right Atrium Mild right atrial dilatation. Left Atrium Mild left atrial dilatation. Mitral Valve Structurally normal mitral valve. Mild mitral regurgitation. No mitral stenosis. Aortic Valve Trileaflet aortic valve. No aortic stenosis. No aortic regurgitation. Tricuspid Valve Structurally normal tricuspid valve. Moderate tricuspid regurgitation. No tricuspid stenosis. Pulmonic Valve No pulmonic stenosis. Trace pulmonic regurgitation. Structurally normal pulmonic valve. Pericardium No pericardial or pleural effusion. Aorta Normal size aortic root and proximal ascending aorta. CONCLUSIONS Left ventricular ejection fraction 55-60% Mildly increased left ventricular wall thickness RVSP 32 Mild mitral regurgitation Moderate tricuspid regurgitation No pericardial effusion Previewed by: Dr. Cassius Powers DO (Electronically Signed) Final Date: 25 February 2024 12:01
--- NOTE | 2024-03-04 15:51 | US ---
EXAMINATION TYPE: US carotid duplex BILAT DATE OF EXAM: 02/24/2024 COMPARISON: NONE CLINICAL INDICATION: Female, 73 years old with history of R29.810 facial weakness; Recurring headache s, left facial weakness, former smoker, and regurgitating heart valve x 2 TECHNIQUE: Carotid duplex ultrasound examination. Indirect Doppler criteria was utilized. FINDINGS: EXAM MEASUREMENTS: RIGHT: Peak Systolic Velocity (PSV) cm/sec ----- Right CCA: 62 ----- Right ICA: 68 ----- Right ECA: 70 ICA/CCA ratio: 1.1 RIGHT: End Diastole cm/sec ----- Right CCA: 20 ----- Right ICA: 14 ----- Right ECA: 10 LEFT: Peak Systolic Velocity (PSV) cm/sec ----- Left CCA: 65 ----- Left ICA: 78 ----- Left ECA: 68 ICA/CCA ratio: 1.2 LEFT: End Diastole cm/sec ----- Left CCA: 20 ----- Left ICA: 29 ----- Left ECA: 10 VERTEBRALS (direction of flow): Right Vertebral: Antegrade Left Vertebral: Antegrade Rhythm: Normal ELECTRONIC ENGRAVER NOTES: IMPRESSION: Less than 50% stenosis of the bilateral carotid bifurcation. Criteria for Assigning % of Stenosis / Diameter reduction (Estimation based on the indirect measurements of the internal carotid artery velocities (ICA PSV). 1. Normal (no stenosis)=ICA PSV < 125 cm/s: ratio < 2.0: ICA EDV<40 cm/s. 2. Less than 50% stenosis=ICA PSV < 125 cm/s: ratio < 2.0: ICA EDV<40 cm/s. 3. 50 to 69% stenosis=ICA PSV of 125 to 230 cm/s: ration 2.0 ? 4.0: ICA EDV 40-100 cm/s. 4. Greater than 70% stenosis to near occlusion= ICA PSV > 230 cm/s: ratio > 4.0: ICA EDV > 100 cm/s. 5. Near occlusion= ICA PSV velocities may be low or undetectable: variable ratio and ICA EDV. 6. Total occlusion=unable to detect flow.
== END | disposition home or self-care (01) ==
LOC: RADUSWWP 15:54
PROVIDERS: ATTEND Internal Medicine Geriatric Medicine
DX: I08.1 Rheumatic disorders of both mitral and tricuspid valves (principal); R29.810 Facial weakness
CPT/HCPCS: 93306; 93880

== ENCOUNTER → 2024-03-10 | Outpatient (CLI) | payer MEDICARE ==
[2024-03-10 10:28] VITALS: BP 136/73; PULSE 78; RESP 16; TEMP 98.6
--- NOTE | 2024-03-10 11:05 | P.SLEEP ---
History of Present Illness DATE: 03/10/2024 CONSULTATION/NEW PATIENT EVALUATION HISTORY OF PRESENT ILLNESS/SLEEP-WAKE EVALUATION: 73-year-old lady had been e valuated in the sleep center for possible obstructive sleep apnea hypopnea syndrome and leg cramps during the sleep. SLEEP SCHEDULE: Usually sleep schedule from 11 PM to 8 AM 7 days a week. FALLING ASLEEP: Sometimes patient has difficulties with falling asleep, although no TV in bedroom. DURING SLEEP: Patient snores and wakes up from sleep up to 4 times with nocturia, grinding teeth, muscle cramps. No history of hypnogogical hallucinations, sleep paralysis, or cataplexy. DURING THE DAY/WAKE STATE: In the morning patient wake up tired, has difficulties to pay attention, has problems with memory, concentration. [place] sleepiness scale is 0. Patient does not take naps. PAST MEDICAL HISTORY: Depression, COPD, asthma, pulmonary hypertension, hypothyroidism, hyperlipidemia, acid reflux, nasal problems, allergy. PAST SURGICAL HISTORY: Hysterectomy, cholecystectomy, tonsillectomy, knee surgery. MEDICATIONS: Please see below. SOCIAL HISTORY: Please see below. FAMILY HISTORY: Hypertension, heart problems, arthritis, sleep apnea, cancer, restless legs. REVIEW OF SYSTEMS: Snoring, multiple awakenings from sleep, leg cramps, not feeling refreshed in the morning. No fevers. No double vision. No recent chest pain. No shortness of breath. No abdominal pain. No bleeding episodes. No blood in urine. No seizure episodes. PHYSICAL EXAMINATION: GENERAL: A pleasant patient without any distress. VITAL SIGNS: Please see below, weight 179 pounds, BMI 31.7. HEENT: PERRLA, EOMI. Evaluation of oropharynx showed tongue protrudes midline, low position of soft palate Mallampati 3. NECK: Supple. No JVD. Thyroid is not palpable. 13.5 inches in circumference. LUNGS: Clear to percussion and to auscultation. Good air exchange. No wheezing or rhonchi. HEART: S1, S2 regular. No murmurs, gallops or rubs. ABDOMEN: Soft and nontender. Bowel sounds are present. No organomegaly appreciated. EXTREMITIES: No clubbing or cyanosis. COMPENSATION AND BENEFITS ADVISOR: Awake, alert, and oriented x3. Cranial nerves 2 to 7 intact. There is no fasciculation or atrophy noted. No focal deficits observed. ASSESSMENT: 1. Snoring, multiple awakenings from sleep with nocturia, low position of soft palate Mallampati 3. Obstructive sleep apnea hypopnea syndrome. 2. Leg cramps during sleep. Rule out periodic limb movements. 3. History of pulmonary hypertension by echocardiogram. 4. COPD. 5 allergy. 6 . Asthma. 7. Depression. 8. Hypothyroidism. 9 . Hyperlipidemia. 10. Status post tonsillectomy. 11. Status post hysterectomy. 12. Status post cholecystectomy. 13. Post knee surgery. 14. Mild obesity by BMI 31.7. PLAN: 1. Polysomnography for evaluation of patient's breathing during sleep and to check for possible periodic limb movements. 2. Following plan after reading sleep study. 3. Preferable position during sleep on the side. 4. No driving if patient feels any sleepiness. Patient is aware of civil and criminal liability for unsafe driving. 5. Sleep hygiene with regular sleep time for at least 7.5-8 hours. 6. Watching and losing weight. Thank you very much for referring this patient for consultation. Sincerely, Rashid Sanchez MD, PhD, FAASM. Diplomat of [place] [employer], Sleep Medicine Board by [employer] Senior Accounting Associate of [facility] [place] cc: Kaylin Stone MD Past Medical History Past Medical History: Asthma, Coronary Artery Disease (CAD), COPD, Eye Disorder, GERD/Reflux, Hearing Disorder / Deafness, Hyperlipidemia, Mitral Valve Prolapse (MVP), Osteoarthritis (OA) Additional Past Medical History / Comment(s): COPD, mitral valve prolapse, questionable history of pulmonary hypertension and enlarged cardiac structures on the right,colonic polyps,ATHRITIS KNEES,WRISTS,SHOULDERS, HX VERTIGO, WEARS GLASSES /CONTACTS-DAILY USE, [place]. EARS- HAS AIDS BUT DOESN'T WEAR, History of Any Multi-Drug Resistant Organisms: None Reported Past Surgical History: Adenoidectomy, Cholecystectomy, Tonsillectomy, Tubal Ligation Additional Past Surgical History / Comment(s): colonoscopy, 2 implanted teeth LOWER RT SIDE, LIPO SUCTION BAL[place]. THIGHS (1994), NASAL SX (FIXED BROKEN NOSE), YOU 05/04/15-previous YOU and cardiac catheterization in 2010 Past Anesthesia/Blood Transfusion Reactions: Postoperative Nausea & Vomiting (PONV) Additional Past Anesthesia/Blood Transfusion Reaction / Comment(s): vertigo Past Psychological History: Anxiety Additional Psychological History / Comment(s): PT IS VERY PLEASNAT 65 YEAR OLD WHO LIVES ALONE, HAS 1 CAT. PT IS INDEPENDANT, RECEIVES NO OUTSIDE SERVICES. PT HAS A MASTERS DEGREE IN [place]. Smoking Status: Former smoker Past Alcohol Use History: Occasional Additional Past Alcohol Use History / Comment(s): STARTED SMOKING 1994 OFF & ON QUIT 03/2015-WAS ABOUT 3 CIGARETTES A DAY Past Drug Use History: None Reported - Past Family History Father Family Medical History: Cancer, Osteoarthritis (OA) Additional Family Medical History / Comment(s): ESOPHAGEAL CANCER, HX ETOH AND SMOKING Mother Family Medical History: Cancer, CVA/TIA, Diabetes Mellitus, Osteoarthritis (OA) Additional Family Medical History / Comment(s): BREAST CANCER, SKIN CANCER AND EYE ANEURYSMS Sister(s) Family Medical History: GERD/Reflux, Hypertension, Sleep Apnea/CPAP/BIPAP Additional Family Medical History / Comment(s): BRAIN AND EYE ANEURYSMS. insomnia, headaches Medications and Allergies Home Medications Medication Instructions Recorded Confirmed Type ALPRAZolam [Xanax] 0.25 mg PO BID PRN 08/09/14 03/10/24 History Albuterol Inhaler [Ventolin Hfa 1 - 2 puff INHALATION RT-Q6H PRN 08/09/14 03/10/24 History Inhaler] Cholecalciferol [Vitamin D3 (25 2,000 unit PO DAILY@1200 05/02/15 03/10/24 History Mcg = 1000 Iu)] Fluticasone Nasal Leonidas [Flonase 1 spray EA NOSTRIL DAILY PRN 05/02/15 02/26/21 History Nasal Leonidas] Meclizine [Antivert] 25 mg PO TID PRN 05/02/15 02/26/21 History Tiotropium 18 Mcg/Puff [Spiriva] 1 cap INHALATION RT-DAILY 05/02/15 03/10/24 History Fexofenadine/Pseudoephedrine 1 each PO DAILY PRN 06/25/15 02/26/21 History [Lila-D 24 Hour Tablet] Independence-3(600mg) 600 mg PO DAILY 06/25/15 03/10/24 History Dulera 1 puff INHALATION DAILY 06/05/20 02/26/21 History Levothyroxine Sodium [Synthroid] 25 mcg PO DAILY 06/05/20 02/26/21 History Montelukast [Singulair] 10 mg PO DAILY 06/05/20 03/10/24 History diphenhydrAMINE [Benadryl] 25 mg PO TID PRN 06/05/20 02/26/21 History Aspirin EC [Ecotrin Low Dose] 81 mg PO DAILY 03/10/24 03/10/24 History Allergies Allergy/AdvReac Type Severity Reaction Status Date / Time peanut Allergy SHORTNESS Verified 02/03/24 19:24 OF BREATH-THROAT CLOSES ENVIRONMENTAL ALLERGIES Allergy SINUS Uncoded 02/03/24 19:24 SYMPTOMS-MOLD,POLLEN,DUST,TREES,GRASS,ETC. Physical Exam Vitals: Vital Signs Temp Pulse Resp BP Pulse Ox 03/10/24 10:27 98.6 F 78 16 136/73 98 Intake and Output 03/09/24 03/10/24 03/10/24 22:59 06:59 14:59 Other: Weight 81.193 kg Sleep Note - Sleep Data ESS Total: 0 - Sleep Note Sleep Note: Temperature: 98.6 F Pulse Rate: 78 Respiratory Rate: 16 Blood Pressure: 136/73 SpO2: 98 Height: 5 ft 3 in Weight: 81.193 kg BMI: Neck Circumference: 13.5
== END ==
LOC: 3 N SLEEP 10:13
PROVIDERS: ATTEND Internal Medicine
DX: G47.33 Obstructive sleep apnea (adult) (pediatric) (principal); R25.2 Cramp and spasm; R35.1 Nocturia; J44.89 Other specified chronic obstructive pulmonary disease; F32.A Depression, unspecified; E03.9 Hypothyroidism, unspecified; E78.5 Hyperlipidemia, unspecified; E66.9 Obesity, unspecified; I27.20 Pulmonary hypertension, unspecified; Z98.890 Other specified postprocedural states; Z90.89 Acquired absence of other organs; Z90.49 Acquired absence of other specified parts of digestive tract; Z68.31 Body mass index [BMI] 31.0-31.9, adult; Z87.891 Personal history of nicotine dependence; Z79.899 Other long term (current) drug therapy; Z79.51 Long term (current) use of inhaled steroids; Z79.890 Hormone replacement therapy; Z91.010 Allergy to peanuts; Z91.09 Other allergy status, other than to drugs and biological substances
CPT/HCPCS: 99211

== ENCOUNTER 2024-04-10 19:31 | Outpatient (CLI) | payer MEDICARE ==
--- NOTE | 2024-04-13 16:51 | P.PCN ---
Description of Procedure: POLYSOMNOGRAPHY REPORT PROCEDURE(S)/DATE(S): Polysomnography 04/10/2024 CLINICAL: Patient has been seen in the sleep center for evaluation of obstructive sleep apnea-hypopnea syndrome. Please see my consultation. Sleep study has been done for evaluation of patient breathing during the sleep. PROCEDURE: The standard montage for clinical polysomnography included the electroencephalogram, the electrooculogram, the mentalis surface electromyography and Lead II cardiography. The respiratory battery consisted of measurements of nasal/buccal air flow, pressure transducer measurements from nose, thoracic and/or abdominal effort and intercostal surface electromyography. Video monitoring has been done to check for any parasomnia events. Nocturnal oxyhemoglobin saturations were obtained by finger oximetry. Step-mack titration with positive airway pressure was utilized to control the respiratory events, if necessary. RESULTS: During the diagnostic sleep study sleep efficiency was extremely short 51.9%. Latency to sleep onset was significantly prolonged to 69.5 min. Sleep architecture showed stage NI was extremely high 13.9%, Delta sleep was absent 0%, REM sleep was towards 7.2%. Respiratory channel showed 1 obstructive apneas, 0 mixed apneas, 2 central apneas, 1 hypopneas with lowest oxygen level 88%. Total apnea hypopnea index was 1.1. Heart rate was in the range between 51 and 76, average 62. EMG showed total of 111 periodic limb movements. IMPRESSIONS: 1. No significant respiratory abnormalities given documented during the sleep study. Normal oxygenation during sleep. 2. Periodic limb movements have been documented. 3. Prolonged sleep latency and low sleep efficiency indicates insomnia versus first night adaptation responds. Please see other impressions from consultation PLAN: 1. I will see patient for follow-up visit to explain results of the test and recommendations. 2. Watching weight. 3. Sleep hygiene with regular time in bed for at least 7-1/2 hours. 4. No driving if feeling sleepiness. 5. Please check iron profile including ferritin level. Low level of iron may increase the risk for periodic limb movements. Thank you very much for allowing me to participate in the management of your patient. Sincerely, Rashid Sanchez MD, PhD, FAASM. Diplomat of [place] [employer], Sleep Medicine Board by [place] [employer] Foreclosure Home Inspector of [facility] [place]
== END 2024-04-11 06:10 | disposition home or self-care (01) ==
LOC: 3 N SLEEP 19:31
PROVIDERS: ATTEND Internal Medicine
CPT/HCPCS: 95810

== ENCOUNTER → 2024-07-25 | Outpatient (CLI) | payer MEDICARE ==
--- NOTE | 2024-07-25 18:18 | CTL ---
EXAMINATION TYPE: CT Low Dose Lung DATE OF EXAM: 07/25/2024 4:56 PM COMPARISON: None. CLINICAL INDICATION: Female, 74 years old with history of SCREENING FOR LUNG CA Z122; Former smoker, quit x 20 years ago. 1 ppd x 30 years., history of tobacco use. TECHNIQUE: Multiple axial non-contrast scans were obtained from approximately the lung apices through the upper abdomen. Coronal and sagittal reformatted images were obtained. Low dose technique was uti lized. MIP were created on a separate workstation and submitted for review. CT DLP: 84.5 mGycm, Automated exposure control for dose reduction was used. CT Contrast: Contrast used: None Oral contrast used: None FINDINGS: Lack of intravenous contrast and low dose technique limits the evaluation of the vascular and soft ti ssue structures. LUNGS: No evidence of pulmonary fibrosis. No evidence of focal consolidation, pneumothorax or pleural effusion. Centrilobular emphysema changes. Nodules: RUL: None. RML: None. RLL: None. FARHAN: None. LLL: None. AIRWAY: Patent and unremarkable. HEART: Size within normal limits. MEDIASTINUM: No gross evidence of adenopathy. VASCULATURE: No aortic aneurysm. MUSCULOSKELETAL: No acute osseous abnormalities SOFT TISSUES/LYMPH NODES: Unremarkable. LOWER NECK: No significant findings. UPPER ABDOMEN: Scattered colonic diverticula. Gallbladder surgically absent. Diffuse low-attenuation to the liver. Small hiatal hernia. IMPRESSION: 1. No clinically significant pulmonary nodules. 2. Mild emphysema. 3. Hepatic steatosis. 4. Small hiatal hernia. 5. Colonic diverticulosis. CT LUNG RAD AND CT CHEST RECOMMENDATION: Lung-Rad 1 Negative: Continue annual screening with LDCT in 12 months. S Modifier (other clinically significant findings): None Recommend smoking cessation (if current smoker), or continuation of smoking cessation (if prior smoke r). Annual screening for lung cancer with low-dose computed tomography is recommended in adults ages 55 to 77 years who have a 30 pack-year smoking history and currently smoke or have quit within the pa st 15 years. Screening should be discontinued once a person has not smoked for 15 years or develops a health problem that substantially limits life expectancy or the ability or willingness to have curat britany lung surgery. Lung rads 2021 [email or web address] [facility], , 07/25/2024 6:15 PM
--- NOTE | 2024-07-25 22:20 | MM ---
Reason for Exam: Screening (asymptomatic). Last screening mammogram was performed 12 month(s) ago. Patient History: Menarche at age 16. First Full-Term at age 26. Hysterectomy at age 69. Postmenopausal. Estrogen for 6 months. Niece had breast cancer, age 38. Mother had breast cancer, age 69. Risk Values: Airma 5 year model risk: 3.2%. NCI Lifetime model risk: 7.7%. Prior Study Comparison: 01/20/2022 Left MG 3D diag mammo w/cad [facility], [facility]. 07/22/2022 Bilateral MG 3D screening mammo w/cad, [facility]. 07/23/2023 Bilateral MG 3D diag mammo w/cad [facility], [facility]. Tissue Density: There are scattered areas of fibroglandular density. Findings: Analyzed By CAD. The pattern is symmetrical. Benign calcifications present bilaterally. No suspicious groups of microcalcifications, spiculated or lobular masses, architectural distortion or other secondary signs of malignancy are mammographically apparent. Overall Assessment: Benign, BI-RAD 2 Management: Screening Mammogram of both breasts in 1 year. A negative mammogram report should not preclude additional follow up of suspicious palpable abnormalities. Patient should continue monthly self breast exam. A clinical breast exam by your physician is recommended on an annual basis and results should be correlated with mammographic findings. Note on Airam scores and lifetime risk: 1. A Airam score greater than 3% is considered moderate risk. If this is the case, consider specialist referral to assess eligibility for a risk reducing agent. 2. If overall lifetime risk for the development of breast cancer is 20% or higher, the patient may qualify for future screening with alternating mammogram and breast MRI. [facility], , 07/25/2024 10:17 PM. Electronically signed and approved by: Humza Mcnamara D.O. Radiologis
== END | disposition home or self-care (01) ==
LOC: RADBDWWP 15:51
PROVIDERS: ATTEND Family Medicine
DX: Z12.31 Encounter for screening mammogram for malignant neoplasm of breast (principal); Z12.2 Encounter for screening for malignant neoplasm of respiratory organs; M81.0 Age-related osteoporosis without current pathological fracture; Z78.0 Asymptomatic menopausal state; Z80.3 Family history of malignant neoplasm of breast; Z85.3 Personal history of malignant neoplasm of breast; R92.323 Mammographic fibroglandular density, bilateral breasts; Z87.891 Personal history of nicotine dependence; J43.9 Emphysema, unspecified; K76.0 Fatty (change of) liver, not elsewhere classified; K44.9 Diaphragmatic hernia without obstruction or gangrene; K57.30 Diverticulosis of large intestine without perforation or abscess without bleeding
CPT/HCPCS: 71271; 77063; 77067; 77080

== ENCOUNTER → 2024-11-22 | Outpatient (CLI) | payer MEDICARE ==
--- NOTE | 2024-11-22 15:19 | USB ---
Reason for Exam: Clinical finding. Patient History: Menarche at age 16. First Full-Term at age 26. Hysterectomy at age 69. Postmenopausal. Estrogen for 6 months. Niece had breast cancer, age 38. Mother had breast cancer, age 69. Risk Values: Airam 5 year model risk: 3.2%. NCI Lifetime model risk: 7.7%. Prior Study Comparison: 07/22/2022 Bilateral MG 3D screening mammo w/cad, [facility]. 07/23/2023 Bilateral MG 3D diag mammo w/cad [place], [facility]. 07/25/2024 Bilateral MG 3D screening mammo w/cad, [facility]. Findings: The area of palpable concern of the left breast, the lower inner quadrant of the left breast, the axilla of the left breast and the retroareolar of the left breast were scanned. Targeted ultrasound lower quadrant left breast 6:00 to 9:00 (corresponding to the patient directed site of pressure) including scanning of the subareolar region and axilla. Fatty breast tissue is demonstrated. No solid or cystic lesion. No axillary lymphadenopathy. Overall Assessment: Probably benign, BI-RAD 3 Management: Diagnostic Mammogram of both breasts in 8 months. In time for the patient's annual exam. Further clinical management of any suspicious palpable area and sensation of pressure. See note below in regards to the patient's increased 5 year Airam score A clinical breast exam by your physician is recommended on an annual basis and results should be correlated with mammographic findings. This exam should not preclude additional follow-up of suspicious palpable abnormalities. Results were given to the patient verbally at the time of exam. Note on Airam scores and lifetime risk: 1. A Airam score greater than 3% is considered moderate risk. If this is the case, consider specialist referral to assess eligibility for a risk reducing agent. 2. If overall lifetime risk for the development of breast cancer is 20% or higher, the patient may qualify for future screening with alternating mammogram and breast MRI. [facility], , 11/22/2024 3:15 PM. Electronically signed and approved by: Elizabeth Ross M.D. Radiologist
== END | disposition home or self-care (01) ==
LOC: RADUSWWP 14:50
PROVIDERS: ATTEND Internal Medicine Geriatric Medicine
DX: N63.24 Unspecified lump in the left breast, lower inner quadrant (principal); Z78.0 Asymptomatic menopausal state; Z80.3 Family history of malignant neoplasm of breast